=== PATIENT | male | born 1950 | race Caucasian/White ===

== ENCOUNTER 2017-01-12 20:13 | Inpatient (IN) | payer MEDICARE, OTHER ==
[~2017-01-12] VITALS: Ht 172.7 cm; Wt 78.9 kg
[2017-01-12] MEDS ORDERED: LANTUS SOL100 UNIT/1 SUBQ (20:15)
[2017-01-12 20:19] VITALS: BP 164/84
[2017-01-12 21:19] LABS: BASOPHILS % (AUTO) 0.5 % (0.0-2.0); EOSINOPHILS % (AUTO) 0.3 % (0.0-3.0); LYMPHOCYTES % (AUTO) 13.9 % (20.0-45.0); MEAN CORPUSCULAR HEMOGLOBIN 32.9 PG (27.0-31.0); MEAN CORPUSCULAR HGB CONC 35.8 G/DL (32.0-36.0); MEAN CORPUSCULAR VOLUME 92 FL (80-99); MEAN PLATELET VOLUME 9.4 FL (6.5-10.1); MONOCYTES % (AUTO) 3.3 % (1.0-10.0); PLATELET COUNT 156 K/UL (150-450); RED BLOOD COUNT 4.22 M/UL (4.70-6.10); RED CELL DISTRIBUTION WIDTH 12.9 % (11.6-14.8); WHITE BLOOD COUNT 16.6 K/UL (4.8-10.8)
[2017-01-12 21:28] LABS: ALANINE AMINOTRANSFERASE 15 U/L (3-41); ALBUMIN/GLOBULIN RATIO 1.4 (1.0-2.7); ANION GAP 16 (5-15); ASPARTATE AMINO TRANSFERASE 18 U/L (5-40); CALCIUM 9.1 mg/dL (8.6-10.2); CARBON DIOXIDE 23 mEQ/L (20-30); CHLORIDE 98 mEQ/L (98-107); CREATININE 0.6 mg/dL (0.7-1.2); GLOMERULAR FILTRATION RATE > 60 mL/min (>60); HEMOLYSIS 5; POTASSIUM 3.7 mEQ/L (3.4-4.9); SODIUM 137 mEQ/L (135-145); TOTAL PROTEIN 6.6 g/dL (6.6-8.7)
[2017-01-12 21:29] LABS: TROPONIN I < 0.30 ng/mL (<=0.30)
[2017-01-12 21:52] LABS: APPEARANCE,URINE CLEAR; KETONES,URINE 2+ (NEGATIVE); LEUKOCYTE ESTERASE ,URINE NEGATIVE (NEGATIVE); NITRITE,URINE NEGATIVE (NEGATIVE); PH,URINE 5 (4.5-8.0); PROTEIN,URINE 1+ (NEGATIVE); UROBILINOGEN,URINE NORMAL MG/DL (0.0-1.0)
[2017-01-12 21:58] LABS: BACTERIA,URINE FEW /HPF; WBC,URINE 0-2 /HPF (0 - 0)
--- NOTE | 2017-01-12 22:12 | Emergency Room Report ---
History of Present Illness General Chief Complaint: Altered Level of Consciousness Source: Patient, EMS Present Illness HPI The patient presents with altered mental status. 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 They were giving him D10. His blood sugar in the field was 34. He 's had hypoglycemic episodes in the past. The last time was 3 weeks ago. He usually feels them coming on with tingling in his fingers. He felt nothing (no warning) prior to this episode. The patient does drive. He denies any fevers, chest pain, nausea, vomiting, diarrhea, dysuria. He states this was around the time he was supposed to eat something. The patient takes Lantus 20 and took 16 of Humalog earlier today. He says his Accu-Chek was "normal" he doesn't give a number. Usually also takes 20 to of Lantus at night and 20 of Humalog. He last saw his primary physician a month ago. Allergies: Coded Allergies: No Known Allergies (Unverified , 01/12/17) Patient History Past Medical History: see triage record, DM Social History: Reports: smoking Social History Narrative Reviewed Nursing Documentation: PMH: Agreed, PSxH: Agreed Nursing Documentation-PMH Past Medical History: No History, Except For Hx Cardiac Problems: Yes Hx Diabetes: Yes Review of Systems All Other Systems: negative except mentioned in HPI Physical Exam Vital Signs Date Time Temp Pulse Resp B/P Pulse Ox O2 Delivery O2 Flow Rate FiO2 01/12/17 20:12 96 16 164/84 99 Room Air 01/12/17 20:19 98.3 Sp02 EP Interpretation: reviewed, normal General Appearance: well appearing, no apparent distress, GCS 15 Head: normocephalic Eyes: bilateral eye PERRL, bilateral eye normal inspection ENT: moist mucus membranes Neck: supple Respiratory: lungs clear, normal breath sounds Cardiovascular #1: regular rate, rhythm Cardiovascular #2: 2+ radial (R) Gastrointestinal: normal inspection, normal bowel sounds, non tender, no mass, non-distended Musculoskeletal: back normal, gait/station normal, normal range of motion Neurologic: alert, oriented x3, grossly normal Psychiatric: mood/affect normal - denial of problems Skin: normal inspection, warm/dry Medical Decision Making Diagnostic Impression: Primary Impression: Hypoglycemia Additional Impressions: Bigeminy Leukocytosis Qualified Codes: D72.829 - Elevated white blood cell count, unspecified ER Course The patient presents with hypoglycemia and altered level of consciousness. Differential includes factors that would make his blood sugar go down including acute myocardial infarction, occult infection, excess insulin, not eating enough , renal insufficiency amongst others. Emergent evaluation is undertaken EKG, labs, chest x-ray. Patient will be given subcutaneous DET early monitoring his blood sugars. Labs are significant for elevated white count. A chest x-ray is unremarkable. EKG shows no acute injury but has bigemini (frequent ectopy). Renal function is normal. Because of the leukocytosis and the patient needs to be observed. Admit to the hospital. Dr. Steiner. Blood sugars have remained stable since the episode. Also DMV form was filled out. Laboratory Tests Test 01/12/17 21:10 White Blood Count 16.6 K/UL (4.8-10.8) H Red Blood Count 4.22 M/UL (4.70-6.10) L Hemoglobin 13.9 G/DL (14.2-18.0) L Hematocrit 38.8 % (42.0-52.0) L Mean Corpuscular Volume 92 FL (80-99) Mean Corpuscular Hemoglobin 32.9 PG (27.0-31.0) H Mean Corpuscular Hemoglobin Concent 35.8 G/DL (32.0-36.0) Red Cell Distribution Width 12.9 % (11.6-14.8) Platelet Count 156 K/UL (150-450) Mean Platelet Volume 9.4 FL (6.5-10.1) Neutrophils (%) (Auto) 82.0 % (45.0-75.0) H Lymphocytes (%) (Auto) 13.9 % (20.0-45.0) L Monocytes (%) (Auto) 3.3 % (1.0-10.0) Eosinophils (%) (Auto) 0.3 % (0.0-3.0) Basophils (%) (Auto) 0.5 % (0.0-2.0) Urine Color Pale yellow Urine Appearance Clear Urine pH 5 (4.5-8.0) Urine Specific [place] 1.020 (1.005-1.035) Urine Protein 1+ (NEGATIVE) H Urine Glucose (UA) 3+ (NEGATIVE) H Urine Ketones 2+ (NEGATIVE) H Urine Occult Blood 2+ (NEGATIVE) H Urine Nitrite Negative (NEGATIVE) Urine Bilirubin Negative (NEGATIVE) Urine Urobilinogen Normal MG/DL (0.0-1.0) Urine Leukocyte Esterase Negative (NEGATIVE) Urine RBC 2-4 /HPF (0 - 0) H Urine WBC 0-2 /HPF (0 - 0) Urine Squamous Epithelial Cells None /LPF (NONE/OCC) Urine Bacteria Few /HPF (NONE) Sodium Level 137 mEQ/L (135-145) Potassium Level 3.7 mEQ/L (3.4-4.9) Chloride Level 98 mEQ/L (98-107) Carbon Dioxide Level 23 mEQ/L (20-30) Anion Gap 16 (5-15) H Blood Urea Nitrogen 13 mg/dL (7-23) Creatinine 0.6 mg/dL (0.7-1.2) L Estimate Glomerular Filtration Rate > 60 mL/min (>60) Glucose Level 252 mg/dL (74-106) H Calcium Level 9.1 mg/dL (8.6-10.2) Total Bilirubin 0.4 mg/dL (0.0-1.2) Aspartate Amino Transferase (AST) 18 U/L (5-40) Alanine Aminotransferase (ALT) 15 U/L (3-41) Alkaline Phosphatase 87 U/L (40-129) Total Creatine Kinase 190 U/L (38-174) H Troponin I < 0.30 ng/mL (<=0.30) Pro-B-Type Natriuretic Peptide 311 pg/mL (0-125) H Total Protein 6.6 g/dL (6.6-8.7) Albumin 3.9 g/dL (3.5-5.2) Globulin 2.7 g/dL Albumin/Globulin Ratio 1.4 (1.0-2.7) Urine Opiates Screen Negative (NEGATIVE) Urine Barbiturates Screen Negative (NEGATIVE) Phencyclidine (PCP) Screen Negative (NEGATIVE) Urine Amphetamines Screen Negative (NEGATIVE) Urine Benzodiazepines Screen Negative (NEGATIVE) Urine Cocaine Screen Negative (NEGATIVE) Urine Marijuana (THC) Screen Negative (NEGATIVE) EKG Diagnostic Results Rate: normal Rhythm: NSR ST Segments: other - frequent PVCs Rhythm Strip Diag. Results EP Interpretation: yes Rhythm: NSR, no PVC's, no ectopy Chest X-Ray Diagnostic Results EP Interpretation: Yes Findings: no consolidation, no effusion, no pneumothorax, no acute cardiopulmonary disease Number of Views: 1 Last Vital Signs Date Time Temp Pulse Resp B/P Pulse Ox O2 Delivery O2 Flow Rate FiO2 01/13/17 00:00 98.0 86 20 145/80 99 Room Air Status: improved Disposition: ADMITTED INPATIENT Condition: Serious Referrals: NOT CHOSEN IPA/,REFERRING (PCP) Karan Vyas M.D. January 12, 2017 22:12
[2017-01-12 22:15] VITALS: BP 153/75
[2017-01-12] MEDS ORDERED: Nitroglycerin Subl 0.4mg tab (Bottle Of 25) SL PRN (23:30)
[2017-01-12] MEDS ORDERED: DuoNeb 0.5-3(2.5)mg/3ml neb HHN PRN (23:30)
[2017-01-12] MEDS ORDERED: Miralax 17gm pkt ORAL PRN (23:30)
[2017-01-12] MEDS ORDERED: Morphine Sulfate 2mg/ml Inj IVP PRN (23:30)
[2017-01-13] VITALS: BP 145/80
[2017-01-13] MEDS ORDERED: Vancomycin 1 GM in D5W 275 ML IV SCH (00:30)
[2017-01-13] MEDS ORDERED: Vancomycin 1.5 GM in D5W 325 ML IVPB SCH (01:00)
[2017-01-13 04:00] VITALS: BP 107/63
[2017-01-13] MEDS: NovoLOG Insulin Flexpen SUBQ SCH ×4 (06:21→21:23)
[2017-01-13 07:25] LABS: BASOPHILS % (AUTO) 1.2 % (0.0-2.0); EOSINOPHILS % (AUTO) 2.3 % (0.0-3.0); LYMPHOCYTES % (AUTO) 42.2 % (20.0-45.0); MEAN CORPUSCULAR HEMOGLOBIN 30.5 PG (27.0-31.0); MEAN CORPUSCULAR HGB CONC 33.4 G/DL (32.0-36.0); MEAN CORPUSCULAR VOLUME 91 FL (80-99); MEAN PLATELET VOLUME 9.4 FL (6.5-10.1); MONOCYTES % (AUTO) 5.9 % (1.0-10.0); NEUTROPHILS % (AUTO) 48.5 % (45.0-75.0); PLATELET COUNT 197 K/UL (150-450); RED BLOOD COUNT 4.47 M/UL (4.70-6.10); RED CELL DISTRIBUTION WIDTH 13.2 % (11.6-14.8); WHITE BLOOD COUNT 10.1 K/UL (4.8-10.8)
[2017-01-13 07:32] LABS: ALANINE AMINOTRANSFERASE 13 U/L (3-41); ALBUMIN/GLOBULIN RATIO 1.2 (1.0-2.7); ANION GAP 13 (5-15); ASPARTATE AMINO TRANSFERASE 16 U/L (5-40); CALCIUM 9.3 mg/dL (8.6-10.2); CARBON DIOXIDE 27 mEQ/L (20-30); CHLORIDE 101 mEQ/L (98-107); CHOLESTEROL 157 mg/dL (< 200); CREATININE 0.7 mg/dL (0.7-1.2); GLOMERULAR FILTRATION RATE > 60 mL/min (>60); HEMOLYSIS 7; POTASSIUM 3.9 mEQ/L (3.4-4.9); SODIUM 141 mEQ/L (135-145); TOTAL PROTEIN 6.2 g/dL (6.6-8.7)
[2017-01-13 07:43] LABS: MAGNESIUM 1.9 mg/dL (1.7-2.5)
[2017-01-13 07:46] LABS: TROPONIN I < 0.30 ng/mL (<=0.30)
[2017-01-13 08:04] VITALS: BP 119/70
[2017-01-13] MEDS: Heparin 5000 units/ml inj SUBQ SCH ×2 (08:33→21:24)
[2017-01-13] MEDS ORDERED: Cefepime HCl 2 GM in D5W 110 ML IV SCH (09:00)
--- NOTE | 2017-01-13 09:11 | Cardiology Progress Note ---
Assessment/Plan Assessment/Plan The patient is seen and examined, full consult note is dictated. Objective Last 24 Hour Vital Signs Date Time Temp Pulse Resp B/P Pulse Ox O2 Delivery O2 Flow Rate FiO2 01/13/17 08:31 119/70 01/13/17 08:04 97.0 82 18 119/70 96 Room Air 01/13/17 04:00 71 01/13/17 04:00 97.7 77 20 107/63 95 Room Air 01/13/17 00:00 98.0 86 20 145/80 99 Room Air 01/13/17 00:00 89 01/12/17 23:06 98.3 81 30 153/75 99 Room Air 01/12/17 22:15 98.3 81 30 153/75 99 Room Air 01/12/17 20:19 98.3 89 16 164/84 99 Room Air 01/12/17 20:12 96 16 164/84 99 Room Air Intake and Output 01/12/17 01/13/17 19:00 07:00 # Voids 3 Laboratory Tests Test 01/12/17 21:10 01/13/17 06:00 White Blood Count 16.6 K/UL (4.8-10.8) H 10.1 K/UL (4.8-10.8) Red Blood Count 4.22 M/UL (4.70-6.10) L 4.47 M/UL (4.70-6.10) L Hemoglobin 13.9 G/DL (14.2-18.0) L 13.7 G/DL (14.2-18.0) L Hematocrit 38.8 % (42.0-52.0) L 40.9 % (42.0-52.0) L Mean Corpuscular Volume 92 FL (80-99) 91 FL (80-99) Mean Corpuscular Hemoglobin 32.9 PG (27.0-31.0) H 30.5 PG (27.0-31.0) Mean Corpuscular Hemoglobin Concent 35.8 G/DL (32.0-36.0) 33.4 G/DL (32.0-36.0) Red Cell Distribution Width 12.9 % (11.6-14.8) 13.2 % (11.6-14.8) Platelet Count 156 K/UL (150-450) 197 K/UL (150-450) Mean Platelet Volume 9.4 FL (6.5-10.1) 9.4 FL (6.5-10.1) Neutrophils (%) (Auto) 82.0 % (45.0-75.0) H 48.5 % (45.0-75.0) Lymphocytes (%) (Auto) 13.9 % (20.0-45.0) L 42.2 % (20.0-45.0) Monocytes (%) (Auto) 3.3 % (1.0-10.0) 5.9 % (1.0-10.0) Eosinophils (%) (Auto) 0.3 % (0.0-3.0) 2.3 % (0.0-3.0) Basophils (%) (Auto) 0.5 % (0.0-2.0) 1.2 % (0.0-2.0) Urine Color Pale yellow Urine Appearance Clear Urine pH 5 (4.5-8.0) Urine Specific [place] 1.020 (1.005-1.035) Urine Protein 1+ (NEGATIVE) H Urine Glucose (UA) 3+ (NEGATIVE) H Urine Ketones 2+ (NEGATIVE) H Urine Occult Blood 2+ (NEGATIVE) H Urine Nitrite Negative (NEGATIVE) Urine Bilirubin Negative (NEGATIVE) Urine Urobilinogen Normal MG/DL (0.0-1.0) Urine Leukocyte Esterase Negative (NEGATIVE) Urine RBC 2-4 /HPF (0 - 0) H Urine WBC 0-2 /HPF (0 - 0) Urine Squamous Epithelial Cells None /LPF (NONE/OCC) Urine Bacteria Few /HPF (NONE) Sodium Level 137 mEQ/L (135-145) 141 mEQ/L (135-145) Potassium Level 3.7 mEQ/L (3.4-4.9) 3.9 mEQ/L (3.4-4.9) Chloride Level 98 mEQ/L (98-107) 101 mEQ/L (98-107) Carbon Dioxide Level 23 mEQ/L (20-30) 27 mEQ/L (20-30) Anion Gap 16 (5-15) H 13 (5-15) Blood Urea Nitrogen 13 mg/dL (7-23) 13 mg/dL (7-23) Creatinine 0.6 mg/dL (0.7-1.2) L 0.7 mg/dL (0.7-1.2) Estimat Glomerular Filtration Rate > 60 mL/min (>60) > 60 mL/min (>60) Glucose Level 252 mg/dL (74-106) H 111 mg/dL (74-106) #H Calcium Level 9.1 mg/dL (8.6-10.2) 9.3 mg/dL (8.6-10.2) Total Bilirubin 0.4 mg/dL (0.0-1.2) 0.5 mg/dL (0.0-1.2) Aspartate Amino Transf (AST/SGOT) 18 U/L (5-40) 16 U/L (5-40) Alanine Aminotransferase (ALT/SGPT) 15 U/L (3-41) 13 U/L (3-41) Alkaline Phosphatase 87 U/L (40-129) 86 U/L (40-129) Total Creatine Kinase 190 U/L (38-174) H Troponin I < 0.30 ng/mL (<=0.30) < 0.30 ng/mL (<=0.30) Pro-B-Type Natriuretic Peptide 311 pg/mL (0-125) H Total Protein 6.6 g/dL (6.6-8.7) 6.2 g/dL (6.6-8.7) L Albumin 3.9 g/dL (3.5-5.2) 3.5 g/dL (3.5-5.2) Globulin 2.7 g/dL 2.7 g/dL Albumin/Globulin Ratio 1.4 (1.0-2.7) 1.2 (1.0-2.7) Urine Opiates Screen Negative (NEGATIVE) Urine Barbiturates Screen Negative (NEGATIVE) Phencyclidine (PCP) Screen Negative (NEGATIVE) Urine Amphetamines Screen Negative (NEGATIVE) Urine Benzodiazepines Screen Negative (NEGATIVE) Urine Cocaine Screen Negative (NEGATIVE) Urine Marijuana (THC) Screen Negative (NEGATIVE) Phosphorus Level 3.0 mg/dL (2.5-4.8) Magnesium Level 1.9 mg/dL (1.7-2.5) Cholesterol Level 157 mg/dL (< 200) SERVANDO LEVINE January 13, 2017 09:11
[2017-01-13] MEDS: Bystolic 2.5mg Tab ORAL SCH (10:42)
[2017-01-13 11:41] VITALS: BP 131/82
--- NOTE | 2017-01-13 12:14 | Consultation ---
Consult Note Consult Note ID Dic# [id number] DAREN SALAS M.D. January 13, 2017 12:13
--- NOTE | 2017-01-13 12:45 | Diagnostic Imaging Report ---
Indication: Chest pain Technique: One view of the chest Comparison: none Findings: Lungs and pleural spaces are clear. Heart size is normal. There are degenerative spondylosis changes Impression: No acute process
[2017-01-13] MEDS ORDERED: Tubing IV Secondary IV ONE (13:53)
[2017-01-13] MEDS ORDERED: NS 275ml ONE (13:53)
--- NOTE | 2017-01-13 14:45 | Consultation ---
History of Present Illness General Date patient seen: January 13, 2017 Chief Complaint: Altered Level of Consciousness Referring physician: Dr. Gann Reason for Consultation: inpaitent management Present Illness HPI 66 year old male with hx of DM, CAD, s/p stent many years ago at [facility] presented with altered mental status. 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 They were giving him D10. His blood sugar in the field was 34. He's had hypoglycemic episodes in the past. The last time was 3 weeks ago. He is admitted to telemetry acute encephalopathy and increased WBC as well. Allergies: Coded Allergies: No Known Allergies (Unverified , 01/12/17) Medication History Scheduled Insulin Glargine (Lantus), 0 SUBQ BEDTIME, (Reported) Patient History Healthcare decision maker pt A&Ox4 Resuscitation status Full Code Advanced Directive on File Past Medical/Surgical History Past Medical/Surgical History: (1) CAD (coronary artery disease) (2) Diabetes mellitus Review of Systems All Other Systems: negative except mentioned in HPI Physical Exam General Appearance: WD/WN Lines, tubes and drains: peripheral, central line HEENT: normocephalic Neck: non-tender, normal alignment Respiratory/Chest: chest wall non-tender, lungs clear Breasts: no masses Cardiovascular/Chest: normal peripheral pulses Abdomen: normal bowel sounds, non tender Genitourinary/Rectal: normal genital exam, normal rectal exam Extremities: normal range of motion, non-tender Neurologic: scale and skip car operator II-XII grossly normal Last 24 Hour Vital Signs Date Time Temp Pulse Resp B/P Pulse Ox O2 Delivery O2 Flow Rate FiO2 01/13/17 12:00 89 01/13/17 11:41 97.3 76 18 131/82 95 Room Air 01/13/17 08:31 119/70 01/13/17 08:04 97.0 82 18 119/70 96 Room Air 01/13/17 08:00 69 01/13/17 07:30 82 18 Room Air 21 01/13/17 04:00 71 01/13/17 04:00 97.7 77 20 107/63 95 Room Air 01/13/17 00:00 98.0 86 20 145/80 99 Room Air 01/13/17 00:00 89 01/12/17 23:06 98.3 81 30 153/75 99 Room Air 01/12/17 22:15 98.3 81 30 153/75 99 Room Air 01/12/17 20:19 98.3 89 16 164/84 99 Room Air 01/12/17 20:12 96 16 164/84 99 Room Air Intake and Output 01/12/17 01/13/17 19:00 07:00 # Voids 3 Laboratory Tests Test 01/12/17 21:10 01/13/17 06:00 White Blood Count 16.6 K/UL (4.8-10.8) H 10.1 K/UL (4.8-10.8) Red Blood Count 4.22 M/UL (4.70-6.10) L 4.47 M/UL (4.70-6.10) L Hemoglobin 13.9 G/DL (14.2-18.0) L 13.7 G/DL (14.2-18.0) L Hematocrit 38.8 % (42.0-52.0) L 40.9 % (42.0-52.0) L Mean Corpuscular Volume 92 FL (80-99) 91 FL (80-99) Mean Corpuscular Hemoglobin 32.9 PG (27.0-31.0) H 30.5 PG (27.0-31.0) Mean Corpuscular Hemoglobin Concent 35.8 G/DL (32.0-36.0) 33.4 G/DL (32.0-36.0) Red Cell Distribution Width 12.9 % (11.6-14.8) 13.2 % (11.6-14.8) Platelet Count 156 K/UL (150-450) 197 K/UL (150-450) Mean Platelet Volume 9.4 FL (6.5-10.1) 9.4 FL (6.5-10.1) Neutrophils (%) (Auto) 82.0 % (45.0-75.0) H 48.5 % (45.0-75.0) Lymphocytes (%) (Auto) 13.9 % (20.0-45.0) L 42.2 % (20.0-45.0) Monocytes (%) (Auto) 3.3 % (1.0-10.0) 5.9 % (1.0-10.0) Eosinophils (%) (Auto) 0.3 % (0.0-3.0) 2.3 % (0.0-3.0) Basophils (%) (Auto) 0.5 % (0.0-2.0) 1.2 % (0.0-2.0) Urine Color Pale yellow Urine Appearance Clear Urine pH 5 (4.5-8.0) Urine Specific [place] 1.020 (1.005-1.035) Urine Protein 1+ (NEGATIVE) H Urine Glucose (UA) 3+ (NEGATIVE) H Urine Ketones 2+ (NEGATIVE) H Urine Occult Blood 2+ (NEGATIVE) H Urine Nitrite Negative (NEGATIVE) Urine Bilirubin Negative (NEGATIVE) Urine Urobilinogen Normal MG/DL (0.0-1.0) Urine Leukocyte Esterase Negative (NEGATIVE) Urine RBC 2-4 /HPF (0 - 0) H Urine WBC 0-2 /HPF (0 - 0) Urine Squamous Epithelial Cells None /LPF (NONE/OCC) Urine Bacteria Few /HPF (NONE) Sodium Level 137 mEQ/L (135-145) 141 mEQ/L (135-145) Potassium Level 3.7 mEQ/L (3.4-4.9) 3.9 mEQ/L (3.4-4.9) Chloride Level 98 mEQ/L (98-107) 101 mEQ/L (98-107) Carbon Dioxide Level 23 mEQ/L (20-30) 27 mEQ/L (20-30) Anion Gap 16 (5-15) H 13 (5-15) Blood Urea Nitrogen 13 mg/dL (7-23) 13 mg/dL (7-23) Creatinine 0.6 mg/dL (0.7-1.2) L 0.7 mg/dL (0.7-1.2) Estimat Glomerular Filtration Rate > 60 mL/min (>60) > 60 mL/min (>60) Glucose Level 252 mg/dL (74-106) H 111 mg/dL (74-106) #H Calcium Level 9.1 mg/dL (8.6-10.2) 9.3 mg/dL (8.6-10.2) Total Bilirubin 0.4 mg/dL (0.0-1.2) 0.5 mg/dL (0.0-1.2) Aspartate Amino Transf (AST/SGOT) 18 U/L (5-40) 16 U/L (5-40) Alanine Aminotransferase (ALT/SGPT) 15 U/L (3-41) 13 U/L (3-41) Alkaline Phosphatase 87 U/L (40-129) 86 U/L (40-129) Total Creatine Kinase 190 U/L (38-174) H Troponin I < 0.30 ng/mL (<=0.30) < 0.30 ng/mL (<=0.30) Pro-B-Type Natriuretic Peptide 311 pg/mL (0-125) H Total Protein 6.6 g/dL (6.6-8.7) 6.2 g/dL (6.6-8.7) L Albumin 3.9 g/dL (3.5-5.2) 3.5 g/dL (3.5-5.2) Globulin 2.7 g/dL 2.7 g/dL Albumin/Globulin Ratio 1.4 (1.0-2.7) 1.2 (1.0-2.7) Urine Opiates Screen Negative (NEGATIVE) Urine Barbiturates Screen Negative (NEGATIVE) Phencyclidine (PCP) Screen Negative (NEGATIVE) Urine Amphetamines Screen Negative (NEGATIVE) Urine Benzodiazepines Screen Negative (NEGATIVE) Urine Cocaine Screen Negative (NEGATIVE) Urine Marijuana (THC) Screen Negative (NEGATIVE) Phosphorus Level 3.0 mg/dL (2.5-4.8) Magnesium Level 1.9 mg/dL (1.7-2.5) Cholesterol Level 157 mg/dL (< 200) Height (Feet): 5 Height (Inches): 8.00 Weight (Pounds): 174 Medications Current Medications Medications (Trade) Dose Ordered Sig/Gilbert Route PRN Reason Start Time Stop Time Status Last Admin Dose Admin Acetaminophen (Tylenol) 650 mg Q4H PRN ORAL fever 01/12/17 23:30 02/11/17 23:29 Albuterol/ Ipratropium (DuoNeb 0.5-3(2.5)mg/3ml) 3 ml EVERY 4 HOURS PRN HHN Shortness of Breath 01/12/17 23:30 01/17/17 23:29 Clonidine HCl (Catapres) 0.1 mg Q6H PRN ORAL sbp>160 01/12/17 23:45 02/11/17 23:44 Dextrose (Dextrose 50%) STAT PRN IV Hypoglycemia 01/12/17 23:30 02/11/17 23:29 Heparin Sodium (Porcine) (Heparin 5000 units/ml) 5,000 units EVERY 12 HOURS SUBQ 01/13/17 09:00 02/12/17 08:59 01/13/17 08:33 Insulin Aspart (NovoLOG) BEFORE MEALS AND HS SUBQ 01/13/17 06:30 02/12/17 06:29 01/13/17 11:09 Irbesartan (Avapro) 75 mg DAILY ORAL 01/13/17 09:00 02/12/17 08:59 01/13/17 08:31 Morphine Sulfate (Morphine Sulfate) 2 mg EVERY 4 HOURS PRN IVP Moderate Pain (Pain Scale 4-6) 01/12/17 23:30 01/19/17 23:29 Nebivolol (Bystolic) 5 mg DAILY ORAL 01/13/17 10:00 02/12/17 09:59 01/13/17 10:42 Nitroglycerin (Ntg) 0.4 mg Every 5 Minutes PRN SL Prn Chest Pain 01/12/17 23:30 02/11/17 23:29 Ondansetron HCl (Zofran) 4 mg Q6H PRN IVP Nausea & Vomiting 01/12/17 23:30 02/11/17 23:29 Polyethylene Glycol (Miralax) 17 gm DAILYPRN PRN ORAL Constipation 01/12/17 23:30 02/11/17 23:29 Temazepam (Restoril) 15 mg HSPRN PRN ORAL Insomnia 01/12/17 23:30 01/19/17 23:29 Assessment/Plan Problem List: (1) Acute encephalopathy ICD Codes: G93.40 - Encephalopathy, unspecified SNOMED: 0573573 (2) Hypoglycemia ICD Codes: E16.2 - Hypoglycemia, unspecified SNOMED: 792709895 (3) Leukocytosis ICD Codes: D72.829 - Elevated white blood cell count, unspecified SNOMED: 912775720, 776989630 Qualifiers: Qualified Codes: D72.829 - Elevated white blood cell count, unspecified (4) Diabetes mellitus ICD Codes: E11.9 - Type 2 diabetes mellitus without complications SNOMED: 80817053 (5) CAD (coronary artery disease) ICD Codes: I25.10 - Atherosclerotic heart disease of [place] coronary artery without angina pectoris SNOMED: 48088235 Assessment/Plan d5 1/2 Ns sliding scale f/u wbc cardiac evaluation VIN RIZVI January 13, 2017 14:45
[2017-01-13 15:28] VITALS: BP 116/48
[2017-01-13] MEDS ORDERED: NovoLOG Insulin Flexpen SUBQ SCH (16:30)
--- NOTE | 2017-01-13 17:49 | History & Physical ---
History and Physical History & Physicial [place] Steiner MD January 13, 2017 17:49
[2017-01-13 20:28] VITALS: BP 123/60
--- NOTE | 2017-01-13 20:32 | Consultation ---
DATE OF CONSULTATION: INFECTIOUS DISEASE CONSULTATION CONSULTING PHYSICIAN: Gene Moyer M.D. REFERRING PHYSICIAN: Keith Acevedo M.D. REASON FOR CONSULTATION: Leukocytosis and possible sepsis. HISTORY OF PRESENT ILLNESS: The patient is a 66-year-old male with multiple medical problems, as listed below, who was admitted to this medical center because of altered level of consciousness. The patient was found to be hypoglycemic with glucose of 34. At the time of admission, the patient was found to have leukocytosis of 16,000 that has normalized today. The patient has been started on IV antibiotics. Infectious Disease consultation has been requested for further evaluation of the patient. The patient, at the time of my visit, mental status has improved back to normal. The patient has history of occasional cough due to smoking. However, he did not have any fever, chills, abdominal pain, nausea, vomiting, diarrhea, dysuria, or polyuria prior to admission or currently. MEDICATIONS: Cefepime and vancomycin. ALLERGIES: No known drug allergies. FAMILY HISTORY: Noncontributory. REVIEW OF SYSTEMS: At 10-point review was done and except what is mentioned has been negative. PHYSICAL EXAMINATION: VITAL SIGNS: Temperature 97.3 degrees, blood pressure 151/82, pulse 76, and respiratory rate 18. HEENT: Mild pale conjunctivae. No icterus. NECK: No lymphadenopathy. CHEST: Clear. HEART: S1 and S2. ABDOMEN: Soft and nontender. EXTREMITIES: No cyanosis. NEUROLOGIC: Awake and alert. LABORATORY DATA: White blood cells 10, hemoglobin 13, and platelets 194,000. White blood cell count at the time of admission was 16.6. BUN 13 and creatinine 0.7. ALT, AST, and alkaline phosphatase are normal. 119. ASSESSMENT: The patient is a 66-year-old male with history of diabetes, who was admitted to this medical center for hypoglycemia. The patient is using insulin and white blood cells appeared to be stress induced. Based on exam and history, there is no evidence of an infection. PLAN: 1. I will discontinue antibiotic treatment and we will monitor the patient off of antibiotics. 2. Monitor CBC. 3. Monitor BMP. 4. From an infectious point, the patient may get discharged off of antibiotics. Thank you, Dr. Acevedo, for allowing me to participate in the care of this patient. I will follow the patient with you during this hospitalization. Gene Moyer M.D. DR: DAYRON JOB#: [id number] CC:
[2017-01-14 00:29] VITALS: BP 125/66
--- NOTE | 2017-01-14 03:02 | History and Physical Report ---
DATE OF ADMISSION: 01/12/2017 CHIEF COMPLAINT: Altered mental status. HISTORY OF PRESENT ILLNESS: This is a 66-year-old, gentleman with past medical history significant for coronary artery disease, status post stent placement and diabetes type 2 who was presented to the hospital after was noted to be altered mental status. The patient stated that he woke up and noted that the . They have given him D10 and it was noted that the blood glucose level was 34 on the field. The patient had an episode of hyperglycemia in the past and for the last past 3 weeks has become progressively worsening. The patient is admitted. Subsequently after initial evaluation in the emergency, the patient was admitted to the hospital with acute and toxic metabolic encephalopathy due to the hypoglycemia and leukocytosis. PAST MEDICAL HISTORY/PAST SURGICAL HISTORY: As above. History of coronary artery disease, status post PTCA with stent at [facility] and history of diabetes type 2. MEDICATIONS AT HOME: Very limited. The patient stated that he is on 2 types of insulin, Lantus as well as short-acting insulin, but he is not very clear about his medications. ALLERGIES: No known drug allergies. SOCIAL HISTORY: The patient currently smokes 2 to 3 cigarettes a day. Denies any substance abuse. Denies any alcohol abuse. FAMILY HISTORY: Noncontributory. REVIEW OF SYSTEMS: Mostly as above. Denies any dysuria or frequency. Denies any hematuria. Denies any hemoptysis or hematochezia. Denies any suicidal or homicidal ideation. Complained about loss of consciousness. Denies any seizure activity. Denies any history of fall with head trauma. PHYSICAL EXAMINATION: VITAL SIGNS: On admission, temperature 98.3, pulse of 96, respirations 16, and blood pressure 164/84, repeat one is 119/70. GENERAL: The patient is awake, responsive, and not in acute distress. HEAD AND NECK: Pupils are reactive to light. EOMs are intact. NECK: Supple. No JVD. LUNGS: Good air entry. No wheezing or rales. HEART: S1 and S2. Regular rhythm. No gallops. ABDOMEN: Soft, nondistended, and nontender. Positive bowel sounds. EXTREMITIES: No cyanosis, clubbing, or edema. NEUROLOGIC: Cranial nerves II through XII are grossly intact. Motor is 5/5 in all extremities. Gait is intact. PSYCHIATRIC: Mood and affect is intact. LABORATORY ON ADMISSION: WBC of 16.6, hemoglobin 13, hematocrit 38, and platelets 156,000. Sodium 137, potassium 2.7, chloride 98, bicarbonate 23, BUN 13, creatinine 0.6, and glucose level is 252, repeat was 111. Total CK is 190. First troponin less than 0.30. ProBNP of 311. UA: +1 protein, glucose is +3, ketones +2, nitrite negative, leukocyte negative, and 2 to 4 RBCs. Urine drug screen is essentially unremarkable. The patient's EKG is sinus rhythm with frequent PVCs, left atrial enlargement, ventricular rate of 88, no ST elevation was noted. The patient had Q waves in leads II, III, and aVF. The patient had echocardiogram done, preliminary results is significant with normal left ventricular systolic chambers, ejection fraction of 60%, borderline left mild left ventricular hypertrophy, and mild mitral regurgitation, mild diastolic velocity suggestive of reduced left ventricular relaxation grade I, trace tricuspid regurgitation, and trace pulmonic regurgitation. ASSESSMENT: 1. Acute toxic metabolic encephalopathy, most likely secondary to hypoglycemia. 2. Leukocytosis, most likely due to the reactive leukocytosis. 3. Uncontrolled diabetes type 2. 4. Coronary artery disease, status post percutaneous transluminal coronary angioplasty with stent placement. 5. Atherosclerotic heart disease. 6. Abnormal EKG with a bigeminy as well as inferior infarction, old one. PLAN: Admit the patient to telemetry. We will follow up laboratory. Cardiology consultation with Dr. Sanderson. ID consultation with Dr. Moyer, and pulmonary consultation with Dr. Acevedo. We will follow up with the laboratory. Gentle hydration. Monitor the blood glucose closely as well as vital signs. Code status is Full Code. DVT prophylaxis, heparin subcutaneous and we tried to get a list of home medications in order to monitor the blood glucose level closely at home. Lake Steiner M.D. DR: NEGAR JOB#: [id number] CC:
--- NOTE | 2017-01-14 04:01 | Consultation ---
DATE OF CONSULTATION: 01/13/2017 CARDIOLOGY CONSULTATION CONSULTING PHYSICIAN: Mateusz Sanderson M.D. REFERRING PHYSICIAN: Keith Acevedo M.D. ADDITIONAL REFERRING PHYSICIAN: Lake Steiner M.D. REASON FOR CONSULTATION: Management of cardiac arrhythmias. HISTORY OF PRESENT ILLNESS: The patient is a very pleasant 66-year-old gentleman, who presents to the hospital with altered mental status. Apparently, the patient had an episode of hypoglycemia with blood sugar in the field at 34. When he woke up he found himself surrounded by fire fighters. D10 was given to him and his symptoms got better. The patient had an another episode of hypoglycemia just about three weeks before this event. On en route to the hospital, he had complains of tingling of fingers. He denied any chest pain or shortness of breath. On arrival to the hospital, initial blood pressure was 164/84 and pulse was 96. A 12-lead electrocardiogram showed ventricle premature complexes in the form of bigeminy. Cardiology consultation was made at request of Dr. Acevedo for assessment and management of his condition. PAST MEDICAL HISTORY: Diabetes mellitus. PAST SURGICAL HISTORY: None. SOCIAL HISTORY: The patient smokes cigarettes. Denies any alcohol or illicit drug use. MEDICATIONS: At home including insulin glargine and Lantus. REVIEW OF SYSTEMS: HEENT: Denies any headache, diplopia, or blurred vision. Constitutional: The patient had generalized weakness, but no fever, chills, or night sweats. Cardiovascular: Denies any chest pain, shortness breath, PND, orthopnea, leg swelling, or palpitations. Pulmonary: Denies any cough, hemoptysis, or wheezing. Gastrointestinal: Denies any nausea, vomiting, diarrhea, constipation, abdominal pain, or GI bleed. Genitourinary: Denies any hematuria, dysuria, or incontinence. Neurologic: Denies any motor dysfunction, sensory deficit, or altered speech. PHYSICAL EXAMINATION: VITAL SIGNS: Blood pressure at the time of arrival to the hospital was 164/84, pulse 92, respirations 16, and O2 saturation 96% on room air. GENERAL: The patient is a very unfortunate 66-year-old gentleman, in no apparent respiratory distress. Alert and oriented x4. HEENT: Atraumatic and normocephalic. Anicteric. Pupils are equal, round, and reactive to light and accommodation. Extraocular muscles intact. NECK: JVP is less than 5 cm. No carotid bruits. Carotid upstroke is 2+ bilaterally. CARDIOVASCULAR: Normal S1 and S2. There is irregular rhythm. A 2/6 mid systolic murmur at the left sternal border. PMI is at fourth intercostal space at the midclavicular line. LUNGS: Clear to auscultation bilaterally. ABDOMEN: Soft, nontender, and nondistended. No hepatosplenomegaly. Positive bowel sounds. EXTREMITIES: No evidence of edema, clubbing, or cyanosis. LABORATORY AND DIAGNOSTIC FINDINGS: WBC 16.6, hemoglobin 13.9, hematocrit 38.8, and platelet count 156,000. Sodium 137, potassium 3.7, chloride 98, bicarbonate 23, BUN 13, creatinine 0.6, and glucose is 252. Calcium is 9.1. Troponin I x2 negative. ProBNP was 311. Urine tox screen was negative. Chest x-ray showed no acute cardiopulmonary disease. ASSESSMENT AND PLAN: The patient is a very unfortunate 66-year-old gentleman, seen in Cardiology consultation at request of Dr. Acevedo and Dr. Steiner. 1. Cardiac arrhythmia/ventricular premature complexes with bigeminy pattern. I would like to add Bystolic 5 mg daily to this regimen to control of the ectopic beats. In the meantime, we will continue with should the blood pressure drops I will place a hold on Bystolic. 2. History of hypertension stage II. We will continue with combination of Bystolic and labetalol. A 2D echocardiography has been ordered. 3. Diabetes mellitus. I would like to thank, Dr. Steiner and Dr. Acevedo, for your kind consultation. Mateusz Sanderson M.D. DR: HUMBERTO JOB#: [id number] CC:
[2017-01-14 04:14] VITALS: BP 120/78
[2017-01-14] MEDS: NovoLOG Insulin Flexpen SUBQ SCH ×6 (06:49→21:04)
[2017-01-14 08:00] VITALS: BP 119/65
--- NOTE | 2017-01-14 08:27 | General Progress Note ---
Assessment/Plan Problem List: (1) Hypoglycemia ICD Codes: E16.2 - Hypoglycemia, unspecified SNOMED: 108916854 (2) Leukocytosis ICD Codes: D72.829 - Elevated white blood cell count, unspecified SNOMED: 097148157, 415949194 Qualifiers: Qualified Codes: D72.829 - Elevated white blood cell count, unspecified (3) Diabetes mellitus ICD Codes: E11.9 - Type 2 diabetes mellitus without complications SNOMED: 52136696 (4) CAD (coronary artery disease) ICD Codes: I25.10 - Atherosclerotic heart disease of [place] coronary artery without angina pectoris SNOMED: 25186969 (5) Acute encephalopathy ICD Codes: G93.40 - Encephalopathy, unspecified SNOMED: 8556356 Assessment/Plan continue to hold basal insulin for now add Novolog 4 units ac tid to SSI Subjective Allergies: Coded Allergies: No Known Allergies (Unverified , 01/12/17) All Systems: reviewed and negative except above Subjective events noted Objective Last 24 Hour Vital Signs Date Time Temp Pulse Resp B/P Pulse Ox O2 Delivery O2 Flow Rate FiO2 01/14/17 04:14 98.5 81 20 120/78 95 Room Air 01/14/17 03:44 65 01/14/17 00:29 98.6 77 19 125/66 94 Room Air 01/13/17 23:41 78 01/13/17 20:28 98.3 78 20 123/60 95 01/13/17 19:56 93 01/13/17 19:29 80 18 Room Air 21 01/13/17 16:00 75 01/13/17 15:28 98.2 74 18 116/48 96 Room Air 01/13/17 12:00 89 01/13/17 11:41 97.3 76 18 131/82 95 Room Air 01/13/17 08:31 119/70 Intake and Output 01/13/17 01/14/17 19:00 07:00 Intake Total 820 ml Balance 820 ml Intake Oral 600 ml IV Total 220 ml # Voids 3 1 Height (Feet): 5 Height (Inches): 8.00 Weight (Pounds): 174 General Appearance: no apparent distress Neck: normal alignment Cardiovascular: normal rate Respiratory/Chest: lungs clear Abdomen: normal bowel sounds Edema: no edema noted Arm (L), no edema noted Arm (R), no edema noted Leg (L), no edema noted Leg (R), no edema noted Pedal (L), no edema noted Pedal (R), no edema noted Generalized Objective Current Medications Medications (Trade) Dose Ordered Sig/Gilbert Route PRN Reason Start Time Stop Time Status Last Admin Dose Admin Acetaminophen (Tylenol) 650 mg Q4H PRN ORAL fever 01/12/17 23:30 02/11/17 23:29 Albuterol/ Ipratropium (DuoNeb 0.5-3(2.5)mg/3ml) 3 ml EVERY 4 HOURS PRN HHN Shortness of Breath 01/12/17 23:30 01/17/17 23:29 Clonidine HCl (Catapres) 0.1 mg Q6H PRN ORAL sbp>160 01/12/17 23:45 02/11/17 23:44 Dextrose (Dextrose 50%) STAT PRN IV Hypoglycemia 01/12/17 23:30 02/11/17 23:29 Heparin Sodium (Porcine) (Heparin 5000 units/ml) 5,000 units EVERY 12 HOURS SUBQ 01/13/17 09:00 02/12/17 08:59 01/13/17 21:24 Insulin Aspart (NovoLOG) BEFORE MEALS AND HS SUBQ 01/13/17 06:30 02/12/17 06:29 01/14/17 06:49 Irbesartan (Avapro) 75 mg DAILY ORAL 01/13/17 09:00 02/12/17 08:59 01/13/17 08:31 Morphine Sulfate (Morphine Sulfate) 2 mg EVERY 4 HOURS PRN IVP Moderate Pain (Pain Scale 4-6) 01/12/17 23:30 01/19/17 23:29 Nebivolol (Bystolic) 5 mg DAILY ORAL 01/13/17 10:00 02/12/17 09:59 01/13/17 10:42 Nitroglycerin (Ntg) 0.4 mg Every 5 Minutes PRN SL Prn Chest Pain 01/12/17 23:30 02/11/17 23:29 Ondansetron HCl (Zofran) 4 mg Q6H PRN IVP Nausea & Vomiting 01/12/17 23:30 02/11/17 23:29 Polyethylene Glycol (Miralax) 17 gm DAILYPRN PRN ORAL Constipation 01/12/17 23:30 02/11/17 23:29 Temazepam (Restoril) 15 mg HSPRN PRN ORAL Insomnia 01/12/17 23:30 01/19/17 23:29 Item Value Date Time Bedside Blood Glucose 150 mg/dl H 01/14/17 0649 Bedside Blood Glucose 249 mg/dl H 01/13/17 2123 Bedside Blood Glucose 299 mg/dl H 01/13/17 1726 Bedside Blood Glucose 268 mg/dl H 01/13/17 1130 Bedside Blood Glucose 92 mg/dl 01/13/17 0621 JA PELLETIER January 14, 2017 08:27
[2017-01-14] MEDS: Bystolic 2.5mg Tab ORAL SCH (09:53)
[2017-01-14] MEDS: Heparin 5000 units/ml inj SUBQ SCH ×2 (09:56→21:05)
--- NOTE | 2017-01-14 10:26 | Pulmonology Progress Note ---
Assessment/Plan Problems: (1) Bigeminy (2) Acute encephalopathy (3) Hypoglycemia (4) Leukocytosis (5) Diabetes mellitus (6) CAD (coronary artery disease) (7) PVC (premature ventricular contraction) Assessment/Plan bystolic was added for PVC's watch blood sugar keep in telemetry, might need titration of cardiac meds dvt prophylaxis Subjective ROS Limited/Unobtainable: No Constitutional: Reports: no symptoms HEENT: Repors: no symptoms Respiratory: Reports: no symptoms Allergies: Coded Allergies: No Known Allergies (Unverified , 01/12/17) Objective Last 24 Hour Vital Signs Date Time Temp Pulse Resp B/P Pulse Ox O2 Delivery O2 Flow Rate FiO2 01/14/17 09:53 119/65 01/14/17 08:00 96.1 68 19 119/65 95 Room Air 01/14/17 04:14 98.5 81 20 120/78 95 Room Air 01/14/17 03:44 65 01/14/17 00:29 98.6 77 19 125/66 94 Room Air 01/13/17 23:41 78 01/13/17 20:28 98.3 78 20 123/60 95 01/13/17 19:56 93 01/13/17 19:29 80 18 Room Air 21 01/13/17 16:00 75 01/13/17 15:28 98.2 74 18 116/48 96 Room Air 01/13/17 12:00 89 01/13/17 11:41 97.3 76 18 131/82 95 Room Air Intake and Output 01/13/17 01/14/17 19:00 07:00 Intake Total 820 ml Balance 820 ml Intake Oral 600 ml IV Total 220 ml # Voids 3 1 General Appearance: WD/WN HEENT: normocephalic, atraumatic Respiratory/Chest: chest wall non-tender, lungs clear Cardiovascular: normal peripheral pulses, normal rate Abdomen: normal bowel sounds, soft, non tender Current Medications Medications (Trade) Dose Ordered Sig/Gilbert Route PRN Reason Start Time Stop Time Status Last Admin Dose Admin Acetaminophen (Tylenol) 650 mg Q4H PRN ORAL fever 01/12/17 23:30 02/11/17 23:29 Albuterol/ Ipratropium (DuoNeb 0.5-3(2.5)mg/3ml) 3 ml EVERY 4 HOURS PRN HHN Shortness of Breath 01/12/17 23:30 01/17/17 23:29 Clonidine HCl (Catapres) 0.1 mg Q6H PRN ORAL sbp>160 01/12/17 23:45 02/11/17 23:44 Dextrose (Dextrose 50%) STAT PRN IV Hypoglycemia 01/12/17 23:30 02/11/17 23:29 Dextrose (Dextrose 50%) STAT PRN IV Hypoglycemia 01/14/17 08:30 02/13/17 08:29 Heparin Sodium (Porcine) (Heparin 5000 units/ml) 5,000 units EVERY 12 HOURS SUBQ 01/13/17 09:00 02/12/17 08:59 01/14/17 09:56 Insulin Aspart (NovoLOG) BEFORE MEALS AND HS SUBQ 01/13/17 06:30 02/12/17 06:29 01/14/17 06:49 Insulin Aspart (NovoLOG) 4 units NOVOTIAC SUBQ 01/14/17 11:50 02/13/17 11:49 Irbesartan (Avapro) 75 mg DAILY ORAL 01/13/17 09:00 02/12/17 08:59 01/14/17 09:53 Morphine Sulfate (Morphine Sulfate) 2 mg EVERY 4 HOURS PRN IVP Moderate Pain (Pain Scale 4-6) 01/12/17 23:30 01/19/17 23:29 Nebivolol (Bystolic) 5 mg DAILY ORAL 01/13/17 10:00 02/12/17 09:59 01/14/17 09:53 Nitroglycerin (Ntg) 0.4 mg Every 5 Minutes PRN SL Prn Chest Pain 01/12/17 23:30 02/11/17 23:29 Ondansetron HCl (Zofran) 4 mg Q6H PRN IVP Nausea & Vomiting 01/12/17 23:30 02/11/17 23:29 Polyethylene Glycol (Miralax) 17 gm DAILYPRN PRN ORAL Constipation 01/12/17 23:30 02/11/17 23:29 Temazepam (Restoril) 15 mg HSPRN PRN ORAL Insomnia 01/12/17 23:30 01/19/17 23:29 VIN RIZVI January 14, 2017 10:26
[2017-01-14 12:00] VITALS: BP 120/62
--- NOTE | 2017-01-14 14:18 | Cardiology Progress Note ---
Assessment/Plan Assessment/Plan 1. VPC bigeminy, on Bystolic, now less frequent only isolated VPCs. 2. Normal LV systolic function. 3. CAD, hx of PCI, stable, continue ASA and high potency statins, i.e. atorvastatin 40, lipid panal in am Subjective Subjective Sinus rhythm at 78 with isolated VPCs. Objective Last 24 Hour Vital Signs Date Time Temp Pulse Resp B/P Pulse Ox O2 Delivery O2 Flow Rate FiO2 01/14/17 12:00 97.0 76 19 120/62 94 Room Air 01/14/17 09:53 119/65 01/14/17 08:00 96.1 68 19 119/65 95 Room Air 01/14/17 07:53 75 01/14/17 04:14 98.5 81 20 120/78 95 Room Air 01/14/17 03:44 65 01/14/17 00:29 98.6 77 19 125/66 94 Room Air 01/13/17 23:41 78 01/13/17 20:28 98.3 78 20 123/60 95 01/13/17 19:56 93 01/13/17 19:29 80 18 Room Air 21 01/13/17 16:00 75 01/13/17 15:28 98.2 74 18 116/48 96 Room Air Intake and Output 01/13/17 01/14/17 19:00 07:00 Intake Total 820 ml Balance 820 ml Intake Oral 600 ml IV Total 220 ml # Voids 3 1 2D Echo: LVEF 60%, Mild MR, Grade I LVDD, RVSP 17 mmHg Microbiology Date/Time Source Procedure Growth Status 01/13/17 06:20 Urine,Clean Catch Urine Culture - Preliminary NO GROWTH AFTER 24 HOURS Resulted Objective HEENT: Atraumatic and normocephalic. Anicteric. Pupils are equal, round, and reactive to light and accommodation. Extraocular muscles intact. NECK: JVP is less than 5 cm. No carotid bruits. Carotid upstroke is 2+ bilaterally. CARDIOVASCULAR: Normal S1 and S2. There is irregular rhythm. A 2/6 mid systolic murmur at the left sternal border. PMI is at fourth intercostal space at the midclavicular line. LUNGS: Clear to auscultation bilaterally. ABDOMEN: Soft, nontender, and nondistended. No hepatosplenomegaly. Positive bowel sounds. EXTREMITIES: No evidence of edema, clubbing, or cyanosis. SERVANDO LEVINE January 14, 2017 14:18
[2017-01-14] MEDS: Aspirin EC 81mg tab ORAL SCH (14:39)
[2017-01-14 16:00] VITALS: BP 126/60
--- NOTE | 2017-01-14 16:44 | Internal Med Progress Note ---
Subjective Date of Service: January 14, 2017 Physician Name Stan Gandara Attending Physician Lake Steiner MD Current Medications Medications (Trade) Dose Ordered Sig/Gilbert Route PRN Reason Start Time Stop Time Status Last Admin Dose Admin Acetaminophen (Tylenol) 650 mg Q4H PRN ORAL fever 01/12/17 23:30 02/11/17 23:29 Albuterol/ Ipratropium (DuoNeb 0.5-3(2.5)mg/3ml) 3 ml EVERY 4 HOURS PRN HHN Shortness of Breath 01/12/17 23:30 01/17/17 23:29 Aspirin (Ecotrin) 81 mg DAILY ORAL 01/14/17 14:30 02/13/17 14:29 01/14/17 14:39 Atorvastatin Calcium (Lipitor) 40 mg BEDTIME ORAL 01/14/17 21:00 02/13/17 20:59 Clonidine HCl (Catapres) 0.1 mg Q6H PRN ORAL sbp>160 01/12/17 23:45 02/11/17 23:44 Dextrose (Dextrose 50%) STAT PRN IV Hypoglycemia 01/12/17 23:30 02/11/17 23:29 Dextrose (Dextrose 50%) STAT PRN IV Hypoglycemia 01/14/17 08:30 02/13/17 08:29 Heparin Sodium (Porcine) (Heparin 5000 units/ml) 5,000 units EVERY 12 HOURS SUBQ 01/13/17 09:00 02/12/17 08:59 01/14/17 09:56 Insulin Aspart (NovoLOG) BEFORE MEALS AND HS SUBQ 01/13/17 06:30 02/12/17 06:29 01/14/17 12:07 Insulin Aspart (NovoLOG) 4 units NOVOTIAC SUBQ 01/14/17 11:50 02/13/17 11:49 01/14/17 12:08 Irbesartan (Avapro) 75 mg DAILY ORAL 01/13/17 09:00 02/12/17 08:59 01/14/17 09:53 Morphine Sulfate (Morphine Sulfate) 2 mg EVERY 4 HOURS PRN IVP Moderate Pain (Pain Scale 4-6) 01/12/17 23:30 01/19/17 23:29 Nebivolol (Bystolic) 5 mg DAILY ORAL 01/13/17 10:00 6/25/17 09:59 01/14/17 09:53 Nitroglycerin (Ntg) 0.4 mg Every 5 Minutes PRN SL Prn Chest Pain 01/12/17 23:30 02/11/17 23:29 Ondansetron HCl (Zofran) 4 mg Q6H PRN IVP Nausea & Vomiting 01/12/17 23:30 02/11/17 23:29 Polyethylene Glycol (Miralax) 17 gm DAILYPRN PRN ORAL Constipation 01/12/17 23:30 02/11/17 23:29 Temazepam (Restoril) 15 mg HSPRN PRN ORAL Insomnia 01/12/17 23:30 01/19/17 23:29 Allergies: Coded Allergies: No Known Allergies (Unverified , 01/12/17) ROS Limited/Unobtainable: No Constitutional: Reports: no symptoms HEENT: Reports: no symptoms Cardiovascular: Reports: no symptoms Respiratory: Reports: no symptoms Gastrointestinal/Abdominal: Reports: no symptoms Genitourinary: Reports: no symptoms Neurologic/Psychiatric: Reports: no symptoms Subjective 66 YO M admitted with hypoglycemia. Cover for [facility] Med-Dr Steiner Objective Last Vital Signs Date Time Temp Pulse Resp B/P Pulse Ox O2 Delivery O2 Flow Rate FiO2 01/14/17 16:00 97.2 69 18 126/60 92 Room Air 01/14/17 07:30 21 Microbiology Date/Time Source Procedure Growth Status 01/13/17 06:20 Urine,Clean Catch Urine Culture - Preliminary NO GROWTH AFTER 24 HOURS Resulted Intake and Output 01/13/17 01/14/17 19:00 07:00 Intake Total 820 ml Balance 820 ml Intake Oral 600 ml IV Total 220 ml # Voids 3 1 Objective General: alert, cooperative, no distress, appears stated age Head: normocephalic, without obvious abnormality, atraumatic Eyes: conjunctivae/corneas clear. PERRL, EOM's intact Throat: lips, mucosa, and tongue normal. MMM Neck: supple, symmetrical, trachea midline, and no JVD Lungs: clear to auscultation bilaterally Heart: regular rate and rhythm, S1, S2 normal, no murmur, click, rub or gallop Abdomen: soft, non-tender, non-distended, bowel sounds normal; no masses or organomegaly Extremities: extremities normal, atraumatic, no cyanosis or edema Pulses: 2+ and symmetric Skin: skin color, texture, turgor normal; no rashes or lesions Neurologic: grossly normal, no focal deficits Assessment/Plan Problem List: (1) Altered mental status Assessment & Plan: Due to hypoglycemia (2) Diabetes mellitus type II, uncontrolled Assessment & Plan: See endocrinology note. (3) Acute encephalopathy (4) Leukocytosis Assessment & Plan: D/C antibiotics. See ID note. (5) Hypoglycemia (6) CAD (coronary artery disease) Status: not improved STAN GANDARA January 14, 2017 16:44
[2017-01-14] MEDS ORDERED: ATORVASTATIN CA20 MG PO (17:24)
--- NOTE | 2017-01-14 18:39 | Infectious Diseases Prog Note ---
Assessment/Plan Assessment/Plan A: The patient is a 66-year-old male with Leukocytosis , SP 2/2 stress on evid of sepsis. SP ALOC 2/2 hypoglycemia DM PLAN: will monitor the Monitor CBC Monitor BMP Subjective Constitutional: Denies: anorexia, chills, drenching sweats, fatigue, fever, no symptoms, other Allergies: Coded Allergies: No Known Allergies (Unverified , 01/12/17) Objective Vital Signs Last 24 Hour Vital Signs Date Time Temp Pulse Resp B/P Pulse Ox O2 Delivery O2 Flow Rate FiO2 01/14/17 16:00 97.2 69 18 126/60 92 Room Air 01/14/17 15:09 65 01/14/17 12:00 97.0 76 19 120/62 94 Room Air 01/14/17 11:48 80 01/14/17 09:53 119/65 01/14/17 08:00 96.1 68 19 119/65 95 Room Air 01/14/17 07:53 75 01/14/17 07:30 70 18 Room Air 21 01/14/17 04:14 98.5 81 20 120/78 95 Room Air 01/14/17 03:44 65 01/14/17 00:29 98.6 77 19 125/66 94 Room Air 01/13/17 23:41 78 01/13/17 20:28 98.3 78 20 123/60 95 01/13/17 19:56 93 01/13/17 19:29 80 18 Room Air 21 Height (Feet): 5 Height (Inches): 8.00 Weight (Pounds): 174 HEENT: mucous membranes moist Respiratory/Chest: no accessory muscle use Cardiovascular: no JVD Abdomen: no scars Microbiology Date/Time Source Procedure Growth Status 01/13/17 06:20 Urine,Clean Catch Urine Culture - Preliminary NO GROWTH AFTER 24 HOURS Resulted Current Medications Medications (Trade) Dose Ordered Sig/Gilbert Route PRN Reason Start Time Stop Time Status Last Admin Dose Admin Acetaminophen (Tylenol) 650 mg Q4H PRN ORAL fever 01/12/17 23:30 02/11/17 23:29 Albuterol/ Ipratropium (DuoNeb 0.5-3(2.5)mg/3ml) 3 ml EVERY 4 HOURS PRN HHN Shortness of Breath 01/12/17 23:30 01/17/17 23:29 Aspirin (Ecotrin) 81 mg DAILY ORAL 01/14/17 14:30 02/13/17 14:29 01/14/17 14:39 Atorvastatin Calcium (Lipitor) 40 mg BEDTIME ORAL 01/14/17 21:00 02/13/17 20:59 Clonidine HCl (Catapres) 0.1 mg Q6H PRN ORAL sbp>160 01/12/17 23:45 02/11/17 23:44 Dextrose (Dextrose 50%) STAT PRN IV Hypoglycemia 01/12/17 23:30 02/11/17 23:29 Dextrose (Dextrose 50%) STAT PRN IV Hypoglycemia 01/14/17 08:30 02/13/17 08:29 Heparin Sodium (Porcine) (Heparin 5000 units/ml) 5,000 units EVERY 12 HOURS SUBQ 01/13/17 09:00 02/12/17 08:59 01/14/17 09:56 Insulin Aspart (NovoLOG) BEFORE MEALS AND HS SUBQ 01/13/17 06:30 02/12/17 06:29 01/14/17 16:51 Insulin Aspart (NovoLOG) 4 units NOVOTIAC SUBQ 01/14/17 11:50 02/13/17 11:49 01/14/17 16:51 Irbesartan (Avapro) 75 mg DAILY ORAL 01/13/17 09:00 02/12/17 08:59 01/14/17 09:53 Morphine Sulfate (Morphine Sulfate) 2 mg EVERY 4 HOURS PRN IVP Moderate Pain (Pain Scale 4-6) 01/12/17 23:30 01/19/17 23:29 Nebivolol (Bystolic) 5 mg DAILY ORAL 01/13/17 10:00 02/12/17 09:59 01/14/17 09:53 Nitroglycerin (Ntg) 0.4 mg Every 5 Minutes PRN SL Prn Chest Pain 01/12/17 23:30 02/11/17 23:29 Ondansetron HCl (Zofran) 4 mg Q6H PRN IVP Nausea & Vomiting 01/12/17 23:30 02/11/17 23:29 Polyethylene Glycol (Miralax) 17 gm DAILYPRN PRN ORAL Constipation 01/12/17 23:30 02/11/17 23:29 Temazepam (Restoril) 15 mg HSPRN PRN ORAL Insomnia 01/12/17 23:30 01/19/17 23:29 DAREN SALAS M.D. January 14, 2017 18:39
[2017-01-14 20:00] VITALS: BP 124/75
[2017-01-15] VITALS: BP 122/59
[2017-01-15 04:21] VITALS: BP 124/66
[2017-01-15] MEDS: NovoLOG Insulin Flexpen SUBQ SCH ×7 (06:19→21:01)
[2017-01-15 08:00] VITALS: BP 105/42
[2017-01-15] MEDS: Bystolic 2.5mg Tab ORAL SCH (08:25)
[2017-01-15] MEDS: Aspirin EC 81mg tab ORAL SCH (08:25)
[2017-01-15] MEDS: Heparin 5000 units/ml inj SUBQ SCH ×2 (08:27→20:47)
[2017-01-15 08:53] LABS: BASOPHILS % (AUTO) 0.9 % (0.0-2.0); EOSINOPHILS % (AUTO) 2.4 % (0.0-3.0); LYMPHOCYTES % (AUTO) 31.5 % (20.0-45.0); MEAN CORPUSCULAR HEMOGLOBIN 31.2 PG (27.0-31.0); MEAN CORPUSCULAR HGB CONC 34.5 G/DL (32.0-36.0); MEAN CORPUSCULAR VOLUME 90 FL (80-99); MEAN PLATELET VOLUME 9.5 FL (6.5-10.1); MONOCYTES % (AUTO) 5.3 % (1.0-10.0); NEUTROPHILS % (AUTO) 59.9 % (45.0-75.0); PLATELET COUNT 195 K/UL (150-450); RED CELL DISTRIBUTION WIDTH 12.7 % (11.6-14.8); WHITE BLOOD COUNT 10.5 K/UL (4.8-10.8)
[2017-01-15 09:21] LABS: ALANINE AMINOTRANSFERASE 12 U/L (3-41); ALBUMIN/GLOBULIN RATIO 1.2 (1.0-2.7); ANION GAP 15 (5-15); ASPARTATE AMINO TRANSFERASE 13 U/L (5-40); CALCIUM 9.4 mg/dL (8.6-10.2); CARBON DIOXIDE 24 mEQ/L (20-30); CHLORIDE 98 mEQ/L (98-107); CREATININE 0.8 mg/dL (0.7-1.2); GLOMERULAR FILTRATION RATE > 60 mL/min (>60); HEMOLYSIS 4; MAGNESIUM 1.8 mg/dL (1.7-2.5); PHOSPHORUS 2.4 mg/dL (2.5-4.8); POTASSIUM 4.1 mEQ/L (3.4-4.9); SODIUM 137 mEQ/L (135-145); TOTAL PROTEIN 6.5 g/dL (6.6-8.7)
--- NOTE | 2017-01-15 10:13 | General Progress Note ---
Assessment/Plan Problem List: (1) Hypoglycemia ICD Codes: E16.2 - Hypoglycemia, unspecified SNOMED: 114475249 (2) Leukocytosis ICD Codes: D72.829 - Elevated white blood cell count, unspecified SNOMED: 473806205, 956437550 Qualifiers: Qualified Codes: D72.829 - Elevated white blood cell count, unspecified (3) Diabetes mellitus ICD Codes: E11.9 - Type 2 diabetes mellitus without complications SNOMED: 54246828 (4) CAD (coronary artery disease) ICD Codes: I25.10 - Atherosclerotic heart disease of [place] coronary artery without angina pectoris SNOMED: 32556353 (5) Acute encephalopathy ICD Codes: G93.40 - Encephalopathy, unspecified SNOMED: 6957350 Assessment/Plan hypoglycemia resolved - glucose is elevated now add Levemir 8 units bid increase Novolog 4 to 6 units ac tid to SSI Subjective Allergies: Coded Allergies: No Known Allergies (Unverified , 01/12/17) All Systems: reviewed and negative except above Subjective events noted Objective Last 24 Hour Vital Signs Date Time Temp Pulse Resp B/P Pulse Ox O2 Delivery O2 Flow Rate FiO2 01/15/17 08:26 105/42 01/15/17 08:00 98.0 74 18 105/42 97 Room Air 01/15/17 07:55 94 01/15/17 04:21 97.0 68 20 124/66 96 Room Air 01/15/17 04:00 66 01/15/17 00:00 98.0 74 20 122/59 97 Room Air 01/15/17 00:00 64 01/14/17 20:00 97.3 74 18 124/75 97 Room Air 01/14/17 20:00 72 01/14/17 19:17 62 18 Room Air 21 01/14/17 16:00 97.2 69 18 126/60 92 Room Air 01/14/17 15:09 65 01/14/17 12:00 97.0 76 19 120/62 94 Room Air 01/14/17 11:48 80 Intake and Output 01/14/17 01/15/17 19:00 07:00 # Voids 1 Laboratory Tests 01/15/17 07:47: White Blood Count 10.5, Red Blood Count 4.60L, Hemoglobin 14.3, Hematocrit 41.5L , Mean Corpuscular Volume 90, Mean Corpuscular Hemoglobin 31.2H, Mean Corpuscular Hemoglobin Concent 34.5, Red Cell Distribution Width 12.7, Platelet Count 195, Mean Platelet Volume 9.5, Neutrophils (%) (Auto) 59.9, Lymphocytes (% ) (Auto) 31.5, Monocytes (%) (Auto) 5.3, Eosinophils (%) (Auto) 2.4, Basophils ( %) (Auto) 0.9, Sodium Level 137, Potassium Level 4.1, Chloride Level 98, Carbon Dioxide Level 24, Anion Gap 15, Blood Urea Nitrogen 22, Creatinine 0.8, Estimat Glomerular Filtration Rate > 60, Glucose Level 241H, Calcium Level 9.4, Phosphorus Level 2.4L, Magnesium Level 1.8, Total Bilirubin 0.5, Aspartate Amino Transf (AST/SGOT) 13, Alanine Aminotransferase (ALT/SGPT) 12, Alkaline Phosphatase 91, Total Protein 6.5L, Albumin 3.6, Globulin 2.9, Albumin/Globulin Ratio 1.2 Height (Feet): 5 Height (Inches): 8.00 Weight (Pounds): 174 General Appearance: no apparent distress Neck: normal alignment Cardiovascular: normal rate Respiratory/Chest: lungs clear Abdomen: normal bowel sounds Objective Current Medications Medications (Trade) Dose Ordered Sig/Gilbert Route PRN Reason Start Time Stop Time Status Last Admin Dose Admin Acetaminophen (Tylenol) 650 mg Q4H PRN ORAL fever 01/12/17 23:30 02/11/17 23:29 Albuterol/ Ipratropium (DuoNeb 0.5-3(2.5)mg/3ml) 3 ml EVERY 4 HOURS PRN HHN Shortness of Breath 01/12/17 23:30 01/17/17 23:29 Aspirin (Ecotrin) 81 mg DAILY ORAL 01/14/17 14:30 02/13/17 14:29 01/15/17 08:25 Atorvastatin Calcium (Lipitor) 40 mg BEDTIME ORAL 01/14/17 21:00 02/13/17 20:59 01/14/17 21:01 Clonidine HCl (Catapres) 0.1 mg Q6H PRN ORAL sbp>160 01/12/17 23:45 02/11/17 23:44 Dextrose (Dextrose 50%) STAT PRN IV Hypoglycemia 01/12/17 23:30 02/11/17 23:29 Dextrose (Dextrose 50%) STAT PRN IV Hypoglycemia 01/14/17 08:30 02/13/17 08:29 Heparin Sodium (Porcine) (Heparin 5000 units/ml) 5,000 units EVERY 12 HOURS SUBQ 01/13/17 09:00 02/12/17 08:59 01/15/17 08:27 Insulin Aspart (NovoLOG) BEFORE MEALS AND HS SUBQ 01/13/17 06:30 02/12/17 06:29 01/15/17 06:20 Insulin Aspart (NovoLOG) 4 units NOVOTIAC SUBQ 01/14/17 11:50 02/13/17 11:49 01/15/17 06:19 Irbesartan (Avapro) 75 mg DAILY ORAL 01/13/17 09:00 02/12/17 08:59 01/15/17 08:26 Morphine Sulfate (Morphine Sulfate) 2 mg EVERY 4 HOURS PRN IVP Moderate Pain (Pain Scale 4-6) 01/12/17 23:30 01/19/17 23:29 Nebivolol (Bystolic) 5 mg DAILY ORAL 01/13/17 10:00 02/12/17 09:59 01/15/17 08:25 Nitroglycerin (Ntg) 0.4 mg Every 5 Minutes PRN SL Prn Chest Pain 01/12/17 23:30 02/11/17 23:29 Ondansetron HCl (Zofran) 4 mg Q6H PRN IVP Nausea & Vomiting 01/12/17 23:30 02/11/17 23:29 Polyethylene Glycol (Miralax) 17 gm DAILYPRN PRN ORAL Constipation 01/12/17 23:30 02/11/17 23:29 Temazepam (Restoril) 15 mg HSPRN PRN ORAL Insomnia 01/12/17 23:30 01/19/17 23:29 Item Value Date Time Bedside Blood Glucose 240 mg/dl H 01/15/17 0630 Bedside Blood Glucose 204 mg/dl H 01/14/17 2109 10/20/91 0000 Bedside Blood Glucose 306 mg/dl H 01/14/17 1651 Bedside Blood Glucose 278 mg/dl H 01/14/17 1208 JA PELLETIER January 15, 2017 10:13
[2017-01-15 12:00] VITALS: BP 112/61
[2017-01-15] MEDS: Levemir Flexpen SUBQ SCH ×2 (12:16→17:05)
[2017-01-15] MEDS ORDERED: Sodium Phosphate 20 MM in NS 275 ML IVPB ONE (14:00)
--- NOTE | 2017-01-15 14:53 | Pulmonology Progress Note ---
Assessment/Plan Problems: (1) Bigeminy (2) Acute encephalopathy (3) Hypoglycemia (4) Leukocytosis (5) Diabetes mellitus (6) CAD (coronary artery disease) (7) PVC (premature ventricular contraction) Assessment/Plan bystolic was added for PVC's, now less often then before watch blood sugar dc planning depends on cardio recommendation dvt prophylaxis Subjective ROS Limited/Unobtainable: No Interval Events: wants to go home Allergies: Coded Allergies: No Known Allergies (Unverified , 01/12/17) Objective Last 24 Hour Vital Signs Date Time Temp Pulse Resp B/P Pulse Ox O2 Delivery O2 Flow Rate FiO2 01/15/17 12:00 97.0 64 18 112/61 94 Room Air 01/15/17 11:45 61 01/15/17 08:26 105/42 01/15/17 08:00 98.0 74 18 105/42 97 Room Air 01/15/17 07:55 94 01/15/17 06:49 64 18 Room Air 01/15/17 04:21 97.0 68 20 124/66 96 Room Air 01/15/17 04:00 66 01/15/17 00:00 98.0 74 20 122/59 97 Room Air 01/15/17 00:00 64 01/14/17 20:00 97.3 74 18 124/75 97 Room Air 01/14/17 20:00 72 01/14/17 19:17 62 18 Room Air 21 01/14/17 16:00 97.2 69 18 126/60 92 Room Air 01/14/17 15:09 65 Intake and Output 01/14/17 01/15/17 19:00 07:00 # Voids 1 General Appearance: WD/WN HEENT: normocephalic, atraumatic Respiratory/Chest: chest wall non-tender, lungs clear Cardiovascular: normal peripheral pulses, normal rate Abdomen: normal bowel sounds, soft, non tender Extremities: no cyanosis, no clubbing Skin: no lesions, no ulcers Microbiology Date/Time Source Procedure Growth Status 01/13/17 06:20 Urine,Clean Catch Urine Culture - Final NO GROWTH AFTER 48 HOURS Complete Laboratory Tests 01/15/17 07:47: White Blood Count 10.5, Red Blood Count 4.60L, Hemoglobin 14.3, Hematocrit 41.5L , Mean Corpuscular Volume 90, Mean Corpuscular Hemoglobin 31.2H, Mean Corpuscular Hemoglobin Concent 34.5, Red Cell Distribution Width 12.7, Platelet Count 195, Mean Platelet Volume 9.5, Neutrophils (%) (Auto) 59.9, Lymphocytes (% ) (Auto) 31.5, Monocytes (%) (Auto) 5.3, Eosinophils (%) (Auto) 2.4, Basophils ( %) (Auto) 0.9, Sodium Level 137, Potassium Level 4.1, Chloride Level 98, Carbon Dioxide Level 24, Anion Gap 15, Blood Urea Nitrogen 22, Creatinine 0.8, Estimat Glomerular Filtration Rate > 60, Glucose Level 241H, Calcium Level 9.4, Phosphorus Level 2.4L, Magnesium Level 1.8, Total Bilirubin 0.5, Aspartate Amino Transf (AST/SGOT) 13, Alanine Aminotransferase (ALT/SGPT) 12, Alkaline Phosphatase 91, Total Protein 6.5L, Albumin 3.6, Globulin 2.9, Albumin/Globulin Ratio 1.2 Current Medications Medications (Trade) Dose Ordered Sig/Gilbert Route PRN Reason Start Time Stop Time Status Last Admin Dose Admin Acetaminophen (Tylenol) 650 mg Q4H PRN ORAL fever 01/12/17 23:30 02/11/17 23:29 Albuterol/ Ipratropium (DuoNeb 0.5-3(2.5)mg/3ml) 3 ml EVERY 4 HOURS PRN HHN Shortness of Breath 01/12/17 23:30 01/17/17 23:29 Aspirin (Ecotrin) 81 mg DAILY ORAL 01/14/17 14:30 02/13/17 14:29 01/15/17 08:25 Atorvastatin Calcium (Lipitor) 40 mg BEDTIME ORAL 01/14/17 21:00 02/13/17 20:59 01/14/17 21:01 Clonidine HCl (Catapres) 0.1 mg Q6H PRN ORAL sbp>160 01/12/17 23:45 02/11/17 23:44 Dextrose STAT PRN IV Hypoglycemia 01/15/17 10:15 02/14/17 10:14 Heparin Sodium (Porcine) (Heparin 5000 units/ml) 5,000 units EVERY 12 HOURS SUBQ 01/13/17 09:00 02/12/17 08:59 01/15/17 08:27 Insulin Aspart (NovoLOG) BEFORE MEALS AND HS SUBQ 01/13/17 06:30 02/12/17 06:29 01/15/17 12:17 Insulin Aspart (NovoLOG) 6 units NOVOTIAC SUBQ 01/15/17 11:50 02/14/17 11:49 01/15/17 12:17 Insulin Detemir (Levemir) 8 units BID SUBQ 01/15/17 11:15 02/14/17 11:14 01/15/17 12:16 Irbesartan (Avapro) 75 mg DAILY ORAL 01/13/17 09:00 02/12/17 08:59 01/15/17 08:26 Morphine Sulfate (Morphine Sulfate) 2 mg EVERY 4 HOURS PRN IVP Moderate Pain (Pain Scale 4-6) 01/12/17 23:30 01/19/17 23:29 Nebivolol (Bystolic) 5 mg DAILY ORAL 01/13/17 10:00 02/12/17 09:59 01/15/17 08:25 Nitroglycerin (Ntg) 0.4 mg Every 5 Minutes PRN SL Prn Chest Pain 01/12/17 23:30 02/11/17 23:29 Ondansetron HCl (Zofran) 4 mg Q6H PRN IVP Nausea & Vomiting 01/12/17 23:30 02/11/17 23:29 Polyethylene Glycol (Miralax) 17 gm DAILYPRN PRN ORAL Constipation 01/12/17 23:30 02/11/17 23:29 Sodium Phosphate/ Sodium Chloride (NaPO4/Sodium Chloride) 281.6667 ml @ 92.778 m... ONCE ONCE IVPB 01/15/17 14:00 01/15/17 17:02 01/15/17 13:54 Temazepam (Restoril) 15 mg HSPRN PRN ORAL Insomnia 01/12/17 23:30 01/19/17 23:29 VIN RIZVI January 15, 2017 14:53
[2017-01-15 16:00] VITALS: BP 113/64
--- NOTE | 2017-01-15 16:17 | Internal Med Progress Note ---
Subjective Date of Service: January 15, 2017 Physician Name Jose Gandara Attending Physician Lake Steiner MD Current Medications Medications (Trade) Dose Ordered Sig/Gilbert Route PRN Reason Start Time Stop Time Status Last Admin Dose Admin Acetaminophen (Tylenol) 650 mg Q4H PRN ORAL fever 01/12/17 23:30 02/11/17 23:29 Albuterol/ Ipratropium (DuoNeb 0.5-3(2.5)mg/3ml) 3 ml EVERY 4 HOURS PRN HHN Shortness of Breath 01/12/17 23:30 01/17/17 23:29 Aspirin (Ecotrin) 81 mg DAILY ORAL 01/14/17 14:30 02/13/17 14:29 01/15/17 08:25 Atorvastatin Calcium (Lipitor) 40 mg BEDTIME ORAL 01/14/17 21:00 02/13/17 20:59 01/14/17 21:01 Clonidine HCl (Catapres) 0.1 mg Q6H PRN ORAL sbp>160 01/12/17 23:45 02/11/17 23:44 Dextrose STAT PRN IV Hypoglycemia 01/15/17 10:15 02/14/17 10:14 Heparin Sodium (Porcine) (Heparin 5000 units/ml) 5,000 units EVERY 12 HOURS SUBQ 01/13/17 09:00 02/12/17 08:59 01/15/17 08:27 Insulin Aspart (NovoLOG) BEFORE MEALS AND HS SUBQ 01/13/17 06:30 02/12/17 06:29 01/15/17 12:17 Insulin Aspart (NovoLOG) 6 units NOVOTIAC SUBQ 01/15/17 11:50 02/14/17 11:49 01/15/17 12:17 Insulin Detemir (Levemir) 8 units BID SUBQ 01/15/17 11:15 02/14/17 11:14 01/15/17 12:16 Irbesartan (Avapro) 75 mg DAILY ORAL 01/13/17 09:00 02/12/17 08:59 01/15/17 08:26 Morphine Sulfate (Morphine Sulfate) 2 mg EVERY 4 HOURS PRN IVP Moderate Pain (Pain Scale 4-6) 01/12/17 23:30 01/19/17 23:29 Nebivolol (Bystolic) 5 mg DAILY ORAL 01/13/17 10:00 02/12/17 09:59 01/15/17 08:25 Nitroglycerin (Ntg) 0.4 mg Every 5 Minutes PRN SL Prn Chest Pain 01/12/17 23:30 02/11/17 23:29 Ondansetron HCl (Zofran) 4 mg Q6H PRN IVP Nausea & Vomiting 01/12/17 23:30 02/11/17 23:29 Polyethylene Glycol (Miralax) 17 gm DAILYPRN PRN ORAL Constipation 01/12/17 23:30 02/11/17 23:29 Sodium Phosphate/ Sodium Chloride (NaPO4/Sodium Chloride) 281.6667 ml @ 92.778 m... ONCE ONCE IVPB 01/15/17 14:00 01/15/17 17:02 01/15/17 13:54 Temazepam (Restoril) 15 mg HSPRN PRN ORAL Insomnia 01/12/17 23:30 01/19/17 23:29 Allergies: Coded Allergies: No Known Allergies (Unverified , 01/12/17) ROS Limited/Unobtainable: No Constitutional: Reports: no symptoms HEENT: Reports: no symptoms Cardiovascular: Reports: no symptoms Respiratory: Reports: no symptoms Gastrointestinal/Abdominal: Reports: no symptoms Genitourinary: Reports: no symptoms Neurologic/Psychiatric: Reports: no symptoms Subjective 66 YO M admitted with hypoglycemia. Cover for Int Carlos-Dr Steiner Objective Last Vital Signs Date Time Temp Pulse Resp B/P Pulse Ox O2 Delivery O2 Flow Rate FiO2 01/15/17 12:00 97.0 64 18 112/61 94 Room Air 01/14/17 19:17 21 Laboratory Tests Test 01/15/17 07:47 White Blood Count 10.5 K/UL (4.8-10.8) Red Blood Count 4.60 M/UL (4.70-6.10) L Hemoglobin 14.3 G/DL (14.2-18.0) Hematocrit 41.5 % (42.0-52.0) L Mean Corpuscular Volume 90 FL (80-99) Mean Corpuscular Hemoglobin 31.2 PG (27.0-31.0) H Mean Corpuscular Hemoglobin Concent 34.5 G/DL (32.0-36.0) Red Cell Distribution Width 12.7 % (11.6-14.8) Platelet Count 195 K/UL (150-450) Mean Platelet Volume 9.5 FL (6.5-10.1) Neutrophils (%) (Auto) 59.9 % (45.0-75.0) Lymphocytes (%) (Auto) 31.5 % (20.0-45.0) Monocytes (%) (Auto) 5.3 % (1.0-10.0) Eosinophils (%) (Auto) 2.4 % (0.0-3.0) Basophils (%) (Auto) 0.9 % (0.0-2.0) Sodium Level 137 mEQ/L (135-145) Potassium Level 4.1 mEQ/L (3.4-4.9) Chloride Level 98 mEQ/L (98-107) Carbon Dioxide Level 24 mEQ/L (20-30) Anion Gap 15 (5-15) Blood Urea Nitrogen 22 mg/dL (7-23) Creatinine 0.8 mg/dL (0.7-1.2) Estimat Glomerular Filtration Rate > 60 mL/min (>60) Glucose Level 241 mg/dL (74-106) H Calcium Level 9.4 mg/dL (8.6-10.2) Phosphorus Level 2.4 mg/dL (2.5-4.8) L Magnesium Level 1.8 mg/dL (1.7-2.5) Total Bilirubin 0.5 mg/dL (0.0-1.2) Aspartate Amino Transf (AST/SGOT) 13 U/L (5-40) Alanine Aminotransferase (ALT/SGPT) 12 U/L (3-41) Alkaline Phosphatase 91 U/L (40-129) Total Protein 6.5 g/dL (6.6-8.7) L Albumin 3.6 g/dL (3.5-5.2) Globulin 2.9 g/dL Albumin/Globulin Ratio 1.2 (1.0-2.7) Microbiology Date/Time Source Procedure Growth Status 01/13/17 06:20 Urine,Clean Catch Urine Culture - Final NO GROWTH AFTER 48 HOURS Complete Intake and Output 01/14/17 01/15/17 19:00 07:00 # Voids 1 Objective General: alert, cooperative, no distress, appears stated age Head: normocephalic, without obvious abnormality, atraumatic Eyes: conjunctivae/corneas clear. PERRL, EOM's intact Throat: lips, mucosa, and tongue normal. MMM Neck: supple, symmetrical, trachea midline, and no JVD Lungs: clear to auscultation bilaterally Heart: regular rate and rhythm, S1, S2 normal, no murmur, click, rub or gallop Abdomen: soft, non-tender, non-distended, bowel sounds normal; no masses or organomegaly Extremities: extremities normal, atraumatic, no cyanosis or edema Pulses: 2+ and symmetric Skin: skin color, texture, turgor normal; no rashes or lesions Neurologic: grossly normal, no focal deficits Assessment/Plan Problem List: (1) Altered mental status Assessment & Plan: Due to hypoglycemia (2) Diabetes mellitus type II, uncontrolled Assessment & Plan: See endocrinology note. Cont levemir and novolog sliding scale. (3) Acute encephalopathy (4) Leukocytosis Assessment & Plan: D/C antibiotics. See ID note. (5) Hypoglycemia Assessment & Plan: See endocrinology note. (6) CAD (coronary artery disease) Status: not improved JOSE GANDARA January 15, 2017 16:17
[2017-01-15 20:00] VITALS: BP 120/77
--- NOTE | 2017-01-15 23:41 | Cardiology Progress Note ---
Assessment/Plan Assessment/Plan 1. VPC bigeminy, resolved, continue Bystolic. 2. Normal LV systolic function. 3. CAD, hx of PCI, stable, continue atorvastatin 40. 4. HTN well controlled with Irbesartan and Bystolic. Subjective Subjective Sinus rhythm at 68 with isolated VPCs. Objective Last 24 Hour Vital Signs Date Time Temp Pulse Resp B/P Pulse Ox O2 Delivery O2 Flow Rate FiO2 01/15/17 20:00 97.7 70 20 120/77 97 Room Air 01/15/17 16:00 97.0 68 19 113/64 94 Room Air 01/15/17 15:41 62 01/15/17 12:00 97.0 64 18 112/61 94 Room Air 01/15/17 11:45 61 01/15/17 08:26 105/42 01/15/17 08:00 98.0 74 18 105/42 97 Room Air 01/15/17 07:55 94 01/15/17 06:49 64 18 Room Air 01/15/17 04:21 97.0 68 20 124/66 96 Room Air 01/15/17 04:00 66 01/15/17 00:00 98.0 74 20 122/59 97 Room Air 01/15/17 00:00 64 Intake and Output 01/14/17 01/15/17 19:00 07:00 # Voids 1 2D Echo: LVEF 60%, Mild MR, Grade I LVDD, RVSP 17 mmHg Laboratory Tests Test 01/15/17 07:47 White Blood Count 10.5 K/UL (4.8-10.8) Red Blood Count 4.60 M/UL (4.70-6.10) L Hemoglobin 14.3 G/DL (14.2-18.0) Hematocrit 41.5 % (42.0-52.0) L Mean Corpuscular Volume 90 FL (80-99) Mean Corpuscular Hemoglobin 31.2 PG (27.0-31.0) H Mean Corpuscular Hemoglobin Concent 34.5 G/DL (32.0-36.0) Red Cell Distribution Width 12.7 % (11.6-14.8) Platelet Count 195 K/UL (150-450) Mean Platelet Volume 9.5 FL (6.5-10.1) Neutrophils (%) (Auto) 59.9 % (45.0-75.0) Lymphocytes (%) (Auto) 31.5 % (20.0-45.0) Monocytes (%) (Auto) 5.3 % (1.0-10.0) Eosinophils (%) (Auto) 2.4 % (0.0-3.0) Basophils (%) (Auto) 0.9 % (0.0-2.0) Sodium Level 137 mEQ/L (135-145) Potassium Level 4.1 mEQ/L (3.4-4.9) Chloride Level 98 mEQ/L (98-107) Carbon Dioxide Level 24 mEQ/L (20-30) Anion Gap 15 (5-15) Blood Urea Nitrogen 22 mg/dL (7-23) Creatinine 0.8 mg/dL (0.7-1.2) Estimat Glomerular Filtration Rate > 60 mL/min (>60) Glucose Level 241 mg/dL (74-106) H Calcium Level 9.4 mg/dL (8.6-10.2) Phosphorus Level 2.4 mg/dL (2.5-4.8) L Magnesium Level 1.8 mg/dL (1.7-2.5) Total Bilirubin 0.5 mg/dL (0.0-1.2) Aspartate Amino Transf (AST/SGOT) 13 U/L (5-40) Alanine Aminotransferase (ALT/SGPT) 12 U/L (3-41) Alkaline Phosphatase 91 U/L (40-129) Total Protein 6.5 g/dL (6.6-8.7) L Albumin 3.6 g/dL (3.5-5.2) Globulin 2.9 g/dL Albumin/Globulin Ratio 1.2 (1.0-2.7) Microbiology Date/Time Source Procedure Growth Status 01/13/17 06:20 Urine,Clean Catch Urine Culture - Final NO GROWTH AFTER 48 HOURS Complete Objective HEENT: Atraumatic and normocephalic. Anicteric. Pupils are equal, round, and reactive to light and accommodation. Extraocular muscles intact. NECK: JVP is less than 5 cm. No carotid bruits. Carotid upstroke is 2+ bilaterally. CARDIOVASCULAR: Normal S1 and S2. There is regular rhythm, occasional ectopic beats. A 2/6 mid systolic murmur at the left sternal border. PMI is at fourth intercostal space at the midclavicular line. LUNGS: Clear to auscultation bilaterally. ABDOMEN: Soft, nontender, and nondistended. No hepatosplenomegaly. Positive bowel sounds. EXTREMITIES: No evidence of edema, clubbing, or cyanosis. SERVANDO LEVINE January 15, 2017 23:41
[2017-01-16] VITALS: BP 126/74
[2017-01-16 04:00] VITALS: BP 108/60
[2017-01-16] MEDS: NovoLOG Insulin Flexpen SUBQ SCH ×7 (06:30→20:45)
[2017-01-16 07:04] LABS: BASOPHILS % (AUTO) 0.8 % (0.0-2.0); EOSINOPHILS % (AUTO) 1.8 % (0.0-3.0); MEAN CORPUSCULAR HEMOGLOBIN 30.5 PG (27.0-31.0); MEAN CORPUSCULAR HGB CONC 33.8 G/DL (32.0-36.0); MEAN CORPUSCULAR VOLUME 90 FL (80-99); MEAN PLATELET VOLUME 9.4 FL (6.5-10.1); MONOCYTES % (AUTO) 5.7 % (1.0-10.0); NEUTROPHILS % (AUTO) 50.7 % (45.0-75.0); PLATELET COUNT 188 K/UL (150-450); RED BLOOD COUNT 4.52 M/UL (4.70-6.10); RED CELL DISTRIBUTION WIDTH 12.9 % (11.6-14.8)
[2017-01-16 07:25] LABS: ANION GAP 14 (5-15); CALCIUM 9.2 mg/dL (8.6-10.2); CARBON DIOXIDE 25 mEQ/L (20-30); CHLORIDE 98 mEQ/L (98-107); CHOLESTEROL 181 mg/dL (< 200); CREATININE 0.8 mg/dL (0.7-1.2); GLOMERULAR FILTRATION RATE > 60 mL/min (>60); HEMOLYSIS 8; LDL CHOLESTEROL (CALC.) 101 mg/dL (60-99); POTASSIUM 4.1 mEQ/L (3.4-4.9); SODIUM 137 mEQ/L (135-145)
[2017-01-16 08:00] VITALS: BP 121/69
--- NOTE | 2017-01-16 08:34 | General Progress Note ---
Assessment/Plan Problem List: (1) Hypoglycemia ICD Codes: E16.2 - Hypoglycemia, unspecified SNOMED: 642908625 (2) Leukocytosis ICD Codes: D72.829 - Elevated white blood cell count, unspecified SNOMED: 466167061, 056781869 Qualifiers: Qualified Codes: D72.829 - Elevated white blood cell count, unspecified (3) Diabetes mellitus ICD Codes: E11.9 - Type 2 diabetes mellitus without complications SNOMED: 89554468 (4) CAD (coronary artery disease) ICD Codes: I25.10 - Atherosclerotic heart disease of [place] coronary artery without angina pectoris SNOMED: 64335936 (5) Acute encephalopathy ICD Codes: G93.40 - Encephalopathy, unspecified SNOMED: 4499324 Assessment/Plan hypoglycemia this morning DC Levemir continue Novolog 6 units ac tid + SSI Subjective Allergies: Coded Allergies: No Known Allergies (Unverified , 01/12/17) All Systems: reviewed and negative except above Subjective events noted Objective Last 24 Hour Vital Signs Date Time Temp Pulse Resp B/P Pulse Ox O2 Delivery O2 Flow Rate FiO2 01/16/17 08:00 96.8 67 20 121/69 96 Room Air 01/16/17 07:53 66 18 Room Air 01/16/17 04:00 58 01/16/17 04:00 97.0 70 20 108/60 97 Room Air 01/16/17 00:00 71 01/16/17 00:00 97.0 74 20 126/74 98 Room Air 01/15/17 20:00 97.7 70 20 120/77 97 Room Air 01/15/17 20:00 80 01/15/17 19:00 68 18 Room Air 01/15/17 16:00 97.0 68 19 113/64 94 Room Air 01/15/17 15:41 62 01/15/17 12:00 97.0 64 18 112/61 94 Room Air 01/15/17 11:45 61 Intake and Output 01/15/17 01/16/17 19:00 07:00 # Voids 1 Laboratory Tests 01/16/17 06:15: White Blood Count 9.0, Red Blood Count 4.52L, Hemoglobin 13.8L, Hematocrit 40.9L , Mean Corpuscular Volume 90, Mean Corpuscular Hemoglobin 30.5, Mean Corpuscular Hemoglobin Concent 33.8, Red Cell Distribution Width 12.9, Platelet Count 188, Mean Platelet Volume 9.4, Neutrophils (%) (Auto) 50.7, Lymphocytes (% ) (Auto) 41.0, Monocytes (%) (Auto) 5.7, Eosinophils (%) (Auto) 1.8, Basophils ( %) (Auto) 0.8, Sodium Level 137, Potassium Level 4.1, Chloride Level 98, Carbon Dioxide Level 25, Anion Gap 14, Blood Urea Nitrogen 19, Creatinine 0.8, Estimat Glomerular Filtration Rate > 60, Glucose Level 262H, Calcium Level 9.2, Phosphorus Level 4.2, Magnesium Level 1.7, Triglycerides Level 93, Cholesterol Level 181, LDL Cholesterol 101H, HDL Cholesterol 61H, Cholesterol/HDL Ratio 3.0L Height (Feet): 5 Height (Inches): 8.00 Weight (Pounds): 174 General Appearance: no apparent distress Neck: normal alignment Cardiovascular: normal rate Respiratory/Chest: lungs clear Abdomen: normal bowel sounds Edema: no edema noted Arm (L), no edema noted Arm (R), no edema noted Leg (L), no edema noted Leg (R), no edema noted Pedal (L), no edema noted Pedal (R), no edema noted Generalized Objective Current Medications Medications (Trade) Dose Ordered Sig/Gilbert Route PRN Reason Start Time Stop Time Status Last Admin Dose Admin Acetaminophen (Tylenol) 650 mg Q4H PRN ORAL fever 01/12/17 23:30 02/11/17 23:29 Albuterol/ Ipratropium (DuoNeb 0.5-3(2.5)mg/3ml) 3 ml EVERY 4 HOURS PRN HHN Shortness of Breath 01/12/17 23:30 01/17/17 23:29 Aspirin (Ecotrin) 81 mg DAILY ORAL 01/14/17 14:30 02/13/17 14:29 01/15/17 08:25 Atorvastatin Calcium (Lipitor) 40 mg BEDTIME ORAL 01/14/17 21:00 02/13/17 20:59 01/15/17 20:46 Clonidine HCl (Catapres) 0.1 mg Q6H PRN ORAL sbp>160 01/12/17 23:45 02/11/17 23:44 Dextrose (Dextrose 50%) STAT PRN IV Hypoglycemia 01/15/17 10:15 02/14/17 10:14 01/16/17 06:08 Heparin Sodium (Porcine) (Heparin 5000 units/ml) 5,000 units EVERY 12 HOURS SUBQ 01/13/17 09:00 02/12/17 08:59 01/15/17 20:47 Insulin Aspart (NovoLOG) BEFORE MEALS AND HS SUBQ 01/13/17 06:30 02/12/17 06:29 01/15/17 21:01 Insulin Aspart (NovoLOG) 6 units NOVOTIAC SUBQ 01/15/17 11:50 02/14/17 11:49 01/15/17 17:06 Insulin Detemir (Levemir) 12 units DAILY SUBQ 01/16/17 09:00 02/15/17 08:59 Irbesartan (Avapro) 75 mg DAILY ORAL 01/13/17 09:00 02/12/17 08:59 01/15/17 08:26 Morphine Sulfate (Morphine Sulfate) 2 mg EVERY 4 HOURS PRN IVP Moderate Pain (Pain Scale 4-6) 01/12/17 23:30 01/19/17 23:29 Nebivolol (Bystolic) 5 mg DAILY ORAL 01/13/17 10:00 02/12/17 09:59 01/15/17 08:25 Nitroglycerin (Ntg) 0.4 mg Every 5 Minutes PRN SL Prn Chest Pain 01/12/17 23:30 02/11/17 23:29 Ondansetron HCl (Zofran) 4 mg Q6H PRN IVP Nausea & Vomiting 01/12/17 23:30 02/11/17 23:29 Polyethylene Glycol (Miralax) 17 gm DAILYPRN PRN ORAL Constipation 01/12/17 23:30 02/11/17 23:29 Temazepam (Restoril) 15 mg HSPRN PRN ORAL Insomnia 01/12/17 23:30 01/19/17 23:29 Item Value Date Time Bedside Blood Glucose 46 mg/dl L 01/16/17 0630 Bedside Blood Glucose 187 mg/dl H 01/15/17 2101 Bedside Blood Glucose 211 mg/dl H 01/15/17 1706 Bedside Blood Glucose 220 mg/dl H 01/15/17 1217 JA PELLETIER January 16, 2017 08:34
[2017-01-16] MEDS: Aspirin EC 81mg tab ORAL SCH (08:41)
[2017-01-16] MEDS: Bystolic 2.5mg Tab ORAL SCH (08:41)
[2017-01-16] MEDS: Heparin 5000 units/ml inj SUBQ SCH ×2 (08:43→20:38)
[2017-01-16] MEDS ORDERED: Levemir Flexpen SUBQ SCH (09:00)
[2017-01-16 12:01] VITALS: BP 117/66
--- NOTE | 2017-01-16 12:53 | Infectious Diseases Prog Note ---
Assessment/Plan Assessment/Plan A: The patient is a 66-year-old male with Leukocytosis , SP 2/2 stress on evid of sepsis. SP ALOC 2/2 hypoglycemia DM PLAN: will monitor the Monitor CBC Monitor BMP Subjective Constitutional: Denies: anorexia, chills, drenching sweats, fatigue, fever, no symptoms, other Allergies: Coded Allergies: No Known Allergies (Unverified , 01/12/17) Objective Vital Signs Last 24 Hour Vital Signs Date Time Temp Pulse Resp B/P Pulse Ox O2 Delivery O2 Flow Rate FiO2 01/16/17 12:01 97.1 63 20 117/66 96 01/16/17 08:41 121/69 01/16/17 08:00 96.8 67 20 121/69 96 Room Air 01/16/17 07:53 66 18 Room Air 01/16/17 07:48 60 01/16/17 04:00 58 01/16/17 04:00 97.0 70 20 108/60 97 Room Air 01/16/17 00:00 71 01/16/17 00:00 97.0 74 20 126/74 98 Room Air 01/15/17 20:00 97.7 70 20 120/77 97 Room Air 01/15/17 20:00 80 01/15/17 19:00 68 18 Room Air 01/15/17 16:00 97.0 68 19 113/64 94 Room Air 01/15/17 15:41 62 Height (Feet): 5 Height (Inches): 8.00 Weight (Pounds): 174 HEENT: anicteric Respiratory/Chest: no accessory muscle use Cardiovascular: regular rhythm Abdomen: no organomegaly Laboratory Tests Test 01/16/17 06:15 White Blood Count 9.0 K/UL (4.8-10.8) Red Blood Count 4.52 M/UL (4.70-6.10) L Hemoglobin 13.8 G/DL (14.2-18.0) L Hematocrit 40.9 % (42.0-52.0) L Mean Corpuscular Volume 90 FL (80-99) Mean Corpuscular Hemoglobin 30.5 PG (27.0-31.0) Mean Corpuscular Hemoglobin Concent 33.8 G/DL (32.0-36.0) Red Cell Distribution Width 12.9 % (11.6-14.8) Platelet Count 188 K/UL (150-450) Mean Platelet Volume 9.4 FL (6.5-10.1) Neutrophils (%) (Auto) 50.7 % (45.0-75.0) Lymphocytes (%) (Auto) 41.0 % (20.0-45.0) Monocytes (%) (Auto) 5.7 % (1.0-10.0) Eosinophils (%) (Auto) 1.8 % (0.0-3.0) Basophils (%) (Auto) 0.8 % (0.0-2.0) Sodium Level 137 mEQ/L (135-145) Potassium Level 4.1 mEQ/L (3.4-4.9) Chloride Level 98 mEQ/L (98-107) Carbon Dioxide Level 25 mEQ/L (20-30) Anion Gap 14 (5-15) Blood Urea Nitrogen 19 mg/dL (7-23) Creatinine 0.8 mg/dL (0.7-1.2) Estimat Glomerular Filtration Rate > 60 mL/min (>60) Glucose Level 262 mg/dL (74-106) H Calcium Level 9.2 mg/dL (8.6-10.2) Phosphorus Level 4.2 mg/dL (2.5-4.8) Magnesium Level 1.7 mg/dL (1.7-2.5) Triglycerides Level 93 mg/dL (< 150) Cholesterol Level 181 mg/dL (< 200) LDL Cholesterol 101 mg/dL (60-99) H HDL Cholesterol 61 mg/dL (> 60) H Cholesterol/HDL Ratio 3.0 (3.3-4.4) L Current Medications Medications (Trade) Dose Ordered Sig/Gilbert Route PRN Reason Start Time Stop Time Status Last Admin Dose Admin Acetaminophen (Tylenol) 650 mg Q4H PRN ORAL fever 01/12/17 23:30 02/11/17 23:29 Albuterol/ Ipratropium (DuoNeb 0.5-3(2.5)mg/3ml) 3 ml EVERY 4 HOURS PRN HHN Shortness of Breath 01/12/17 23:30 01/17/17 23:29 Aspirin (Ecotrin) 81 mg DAILY ORAL 01/14/17 14:30 02/13/17 14:29 01/16/17 08:41 Atorvastatin Calcium (Lipitor) 40 mg BEDTIME ORAL 01/14/17 21:00 02/13/17 20:59 01/15/17 20:46 Clonidine HCl (Catapres) 0.1 mg Q6H PRN ORAL sbp>160 01/12/17 23:45 02/11/17 23:44 Dextrose (Dextrose 50%) STAT PRN IV Hypoglycemia 01/15/17 10:15 02/14/17 10:14 01/16/17 06:08 Heparin Sodium (Porcine) (Heparin 5000 units/ml) 5,000 units EVERY 12 HOURS SUBQ 01/13/17 09:00 02/12/17 08:59 01/16/17 08:43 Insulin Aspart (NovoLOG) BEFORE MEALS AND HS SUBQ 01/13/17 06:30 02/12/17 06:29 01/16/17 12:14 Insulin Aspart (NovoLOG) 6 units NOVOTIAC SUBQ 01/15/17 11:50 02/14/17 11:49 01/16/17 12:14 Irbesartan (Avapro) 75 mg DAILY ORAL 01/13/17 09:00 02/12/17 08:59 01/16/17 08:41 Morphine Sulfate (Morphine Sulfate) 2 mg EVERY 4 HOURS PRN IVP Moderate Pain (Pain Scale 4-6) 01/12/17 23:30 01/19/17 23:29 Nebivolol (Bystolic) 5 mg DAILY ORAL 01/13/17 10:00 02/12/17 09:59 01/16/17 08:41 Nitroglycerin (Ntg) 0.4 mg Every 5 Minutes PRN SL Prn Chest Pain 01/12/17 23:30 02/11/17 23:29 Ondansetron HCl (Zofran) 4 mg Q6H PRN IVP Nausea & Vomiting 01/12/17 23:30 02/11/17 23:29 Polyethylene Glycol (Miralax) 17 gm DAILYPRN PRN ORAL Constipation 01/12/17 23:30 02/11/17 23:29 Temazepam (Restoril) 15 mg HSPRN PRN ORAL Insomnia 01/12/17 23:30 01/19/17 23:29 DAREN SALAS M.D. January 16, 2017 12:53
[2017-01-16] MEDS ORDERED: Tubing IV Secondary IV ONE (13:27)
[2017-01-16 15:58] VITALS: BP 117/72
--- NOTE | 2017-01-16 16:14 | Internal Med Progress Note ---
Subjective Date of Service: January 16, 2017 Physician Name Stan Gandara Attending Physician Lake Steiner MD Current Medications Medications (Trade) Dose Ordered Sig/Gilbert Route PRN Reason Start Time Stop Time Status Last Admin Dose Admin Acetaminophen (Tylenol) 650 mg Q4H PRN ORAL fever 01/12/17 23:30 02/11/17 23:29 Albuterol/ Ipratropium (DuoNeb 0.5-3(2.5)mg/3ml) 3 ml EVERY 4 HOURS PRN HHN Shortness of Breath 01/12/17 23:30 01/17/17 23:29 Aspirin (Ecotrin) 81 mg DAILY ORAL 01/14/17 14:30 02/13/17 14:29 01/16/17 08:41 Atorvastatin Calcium (Lipitor) 40 mg BEDTIME ORAL 01/14/17 21:00 02/13/17 20:59 01/15/17 20:46 Clonidine HCl (Catapres) 0.1 mg Q6H PRN ORAL sbp>160 01/12/17 23:45 02/11/17 23:44 Dextrose (Dextrose 50%) STAT PRN IV Hypoglycemia 01/15/17 10:15 02/14/17 10:14 01/16/17 06:08 Heparin Sodium (Porcine) (Heparin 5000 units/ml) 5,000 units EVERY 12 HOURS SUBQ 01/13/17 09:00 02/12/17 08:59 01/16/17 08:43 Insulin Aspart (NovoLOG) BEFORE MEALS AND HS SUBQ 01/13/17 06:30 02/12/17 06:29 01/16/17 12:14 Insulin Aspart (NovoLOG) 6 units NOVOTIAC SUBQ 01/15/17 11:50 02/14/17 11:49 01/16/17 12:14 Irbesartan (Avapro) 75 mg DAILY ORAL 01/13/17 09:00 02/12/17 08:59 01/16/17 08:41 Morphine Sulfate (Morphine Sulfate) 2 mg EVERY 4 HOURS PRN IVP Moderate Pain (Pain Scale 4-6) 01/12/17 23:30 01/19/17 23:29 Nebivolol (Bystolic) 5 mg DAILY ORAL 01/13/17 10:00 02/12/17 09:59 01/16/17 08:41 Nitroglycerin (Ntg) 0.4 mg Every 5 Minutes PRN SL Prn Chest Pain 01/12/17 23:30 02/11/17 23:29 Ondansetron HCl (Zofran) 4 mg Q6H PRN IVP Nausea & Vomiting 01/12/17 23:30 02/11/17 23:29 Polyethylene Glycol (Miralax) 17 gm DAILYPRN PRN ORAL Constipation 01/12/17 23:30 02/11/17 23:29 Temazepam (Restoril) 15 mg HSPRN PRN ORAL Insomnia 01/12/17 23:30 01/19/17 23:29 Allergies: Coded Allergies: No Known Allergies (Unverified , 01/12/17) ROS Limited/Unobtainable: No Constitutional: Reports: no symptoms HEENT: Reports: no symptoms Cardiovascular: Reports: no symptoms Respiratory: Reports: no symptoms Gastrointestinal/Abdominal: Reports: no symptoms Genitourinary: Reports: no symptoms Neurologic/Psychiatric: Reports: no symptoms Subjective 66 YO M admitted with hypoglycemia. Hypoglycemia this am. Cover for Int Med- Dr Steiner Objective Last Vital Signs Date Time Temp Pulse Resp B/P Pulse Ox O2 Delivery O2 Flow Rate FiO2 01/16/17 15:58 97.5 65 20 117/72 95 Room Air 01/14/17 19:17 21 Laboratory Tests Test 01/16/17 06:15 White Blood Count 9.0 K/UL (4.8-10.8) Red Blood Count 4.52 M/UL (4.70-6.10) L Hemoglobin 13.8 G/DL (14.2-18.0) L Hematocrit 40.9 % (42.0-52.0) L Mean Corpuscular Volume 90 FL (80-99) Mean Corpuscular Hemoglobin 30.5 PG (27.0-31.0) Mean Corpuscular Hemoglobin Concent 33.8 G/DL (32.0-36.0) Red Cell Distribution Width 12.9 % (11.6-14.8) Platelet Count 188 K/UL (150-450) Mean Platelet Volume 9.4 FL (6.5-10.1) Neutrophils (%) (Auto) 50.7 % (45.0-75.0) Lymphocytes (%) (Auto) 41.0 % (20.0-45.0) Monocytes (%) (Auto) 5.7 % (1.0-10.0) Eosinophils (%) (Auto) 1.8 % (0.0-3.0) Basophils (%) (Auto) 0.8 % (0.0-2.0) Sodium Level 137 mEQ/L (135-145) Potassium Level 4.1 mEQ/L (3.4-4.9) Chloride Level 98 mEQ/L (98-107) Carbon Dioxide Level 25 mEQ/L (20-30) Anion Gap 14 (5-15) Blood Urea Nitrogen 19 mg/dL (7-23) Creatinine 0.8 mg/dL (0.7-1.2) Estimat Glomerular Filtration Rate > 60 mL/min (>60) Glucose Level 262 mg/dL (74-106) H Calcium Level 9.2 mg/dL (8.6-10.2) Phosphorus Level 4.2 mg/dL (2.5-4.8) Magnesium Level 1.7 mg/dL (1.7-2.5) Triglycerides Level 93 mg/dL (< 150) Cholesterol Level 181 mg/dL (< 200) LDL Cholesterol 101 mg/dL (60-99) H HDL Cholesterol 61 mg/dL (> 60) H Cholesterol/HDL Ratio 3.0 (3.3-4.4) L Intake and Output 01/15/17 01/16/17 19:00 07:00 # Voids 1 Objective General: alert, cooperative, no distress, appears stated age Head: normocephalic, without obvious abnormality, atraumatic Eyes: conjunctivae/corneas clear. PERRL, EOM's intact Throat: lips, mucosa, and tongue normal. MMM Neck: supple, symmetrical, trachea midline, and no JVD Lungs: clear to auscultation bilaterally Heart: regular rate and rhythm, S1, S2 normal, no murmur, click, rub or gallop Abdomen: soft, non-tender, non-distended, bowel sounds normal; no masses or organomegaly Extremities: extremities normal, atraumatic, no cyanosis or edema Pulses: 2+ and symmetric Skin: skin color, texture, turgor normal; no rashes or lesions Neurologic: grossly normal, no focal deficits Assessment/Plan Problem List: (1) Altered mental status Assessment & Plan: Due to hypoglycemia (2) Diabetes mellitus type II, uncontrolled Assessment & Plan: See endocrinology note. D/C levemir due to hypoglycemia; continue novolog sliding scale. (3) Acute encephalopathy (4) Leukocytosis Assessment & Plan: D/C antibiotics. See ID note. (5) Hypoglycemia Assessment & Plan: See endocrinology note. (6) CAD (coronary artery disease) Status: not improved STAN GANDARA January 16, 2017 16:14
[2017-01-16] MEDS ORDERED: BYSTOLIC 2.5MG2.5 MG ORAL (17:04)
--- NOTE | 2017-01-16 17:21 | Pulmonology Progress Note ---
Assessment/Plan Problems: (1) Bigeminy (2) Acute encephalopathy (3) Hypoglycemia (4) Leukocytosis (5) Diabetes mellitus (6) CAD (coronary artery disease) (7) PVC (premature ventricular contraction) Assessment/Plan bystolic was added for PVC's, now less often then before watch blood sugar, was too low this morning Levemir was discontinued dc in am dvt prophylaxis Subjective ROS Limited/Unobtainable: No Interval Events: Blood sugar was 40 this morning Constitutional: Reports: no symptoms HEENT: Repors: no symptoms Respiratory: Reports: no symptoms Allergies: Coded Allergies: No Known Allergies (Unverified , 01/12/17) Objective Last 24 Hour Vital Signs Date Time Temp Pulse Resp B/P Pulse Ox O2 Delivery O2 Flow Rate FiO2 01/16/17 15:58 97.5 65 20 117/72 95 Room Air 01/16/17 12:01 97.1 63 20 117/66 96 01/16/17 11:21 86 01/16/17 08:41 121/69 01/16/17 08:00 96.8 67 20 121/69 96 Room Air 01/16/17 07:53 66 18 Room Air 01/16/17 07:48 60 01/16/17 04:00 58 01/16/17 04:00 97.0 70 20 108/60 97 Room Air 01/16/17 00:00 71 01/16/17 00:00 97.0 74 20 126/74 98 Room Air 01/15/17 20:00 97.7 70 20 120/77 97 Room Air 01/15/17 20:00 80 01/15/17 19:00 68 18 Room Air Intake and Output 01/15/17 01/16/17 19:00 07:00 # Voids 1 General Appearance: WD/WN HEENT: normocephalic, atraumatic Respiratory/Chest: chest wall non-tender, lungs clear Cardiovascular: normal rate Abdomen: normal bowel sounds, soft, non tender Neurologic/Psychiatric: bone tender II-XII grossly normal, abnormal gait Laboratory Tests 01/16/17 06:15: White Blood Count 9.0, Red Blood Count 4.52L, Hemoglobin 13.8L, Hematocrit 40.9L , Mean Corpuscular Volume 90, Mean Corpuscular Hemoglobin 30.5, Mean Corpuscular Hemoglobin Concent 33.8, Red Cell Distribution Width 12.9, Platelet Count 188, Mean Platelet Volume 9.4, Neutrophils (%) (Auto) 50.7, Lymphocytes (% ) (Auto) 41.0, Monocytes (%) (Auto) 5.7, Eosinophils (%) (Auto) 1.8, Basophils ( %) (Auto) 0.8, Sodium Level 137, Potassium Level 4.1, Chloride Level 98, Carbon Dioxide Level 25, Anion Gap 14, Blood Urea Nitrogen 19, Creatinine 0.8, Estimat Glomerular Filtration Rate > 60, Glucose Level 262H, Calcium Level 9.2, Phosphorus Level 4.2, Magnesium Level 1.7, Triglycerides Level 93, Cholesterol Level 181, LDL Cholesterol 101H, HDL Cholesterol 61H, Cholesterol/HDL Ratio 3.0L Current Medications Medications (Trade) Dose Ordered Sig/Gilbert Route PRN Reason Start Time Stop Time Status Last Admin Dose Admin Acetaminophen (Tylenol) 650 mg Q4H PRN ORAL fever 01/12/17 23:30 02/11/17 23:29 Albuterol/ Ipratropium (DuoNeb 0.5-3(2.5)mg/3ml) 3 ml EVERY 4 HOURS PRN HHN Shortness of Breath 01/12/17 23:30 01/17/17 23:29 Aspirin (Ecotrin) 81 mg DAILY ORAL 01/14/17 14:30 02/13/17 14:29 01/16/17 08:41 Atorvastatin Calcium (Lipitor) 40 mg BEDTIME ORAL 01/14/17 21:00 02/13/17 20:59 01/15/17 20:46 Clonidine HCl (Catapres) 0.1 mg Q6H PRN ORAL sbp>160 01/12/17 23:45 02/11/17 23:44 Dextrose (Dextrose 50%) STAT PRN IV Hypoglycemia 01/15/17 10:15 02/14/17 10:14 01/16/17 06:08 Heparin Sodium (Porcine) (Heparin 5000 units/ml) 5,000 units EVERY 12 HOURS SUBQ 01/13/17 09:00 02/12/17 08:59 01/16/17 08:43 Insulin Aspart (NovoLOG) BEFORE MEALS AND HS SUBQ 01/13/17 06:30 02/12/17 06:29 01/16/17 12:14 Insulin Aspart (NovoLOG) 6 units NOVOTIAC SUBQ 01/15/17 11:50 02/14/17 11:49 01/16/17 12:14 Irbesartan (Avapro) 75 mg DAILY ORAL 01/13/17 09:00 02/12/17 08:59 01/16/17 08:41 Morphine Sulfate (Morphine Sulfate) 2 mg EVERY 4 HOURS PRN IVP Moderate Pain (Pain Scale 4-6) 01/12/17 23:30 01/19/17 23:29 Nebivolol (Bystolic) 5 mg DAILY ORAL 01/13/17 10:00 02/12/17 09:59 01/16/17 08:41 Nitroglycerin (Ntg) 0.4 mg Every 5 Minutes PRN SL Prn Chest Pain 01/12/17 23:30 02/11/17 23:29 Ondansetron HCl (Zofran) 4 mg Q6H PRN IVP Nausea & Vomiting 01/12/17 23:30 02/11/17 23:29 Polyethylene Glycol (Miralax) 17 gm DAILYPRN PRN ORAL Constipation 01/12/17 23:30 02/11/17 23:29 Temazepam (Restoril) 15 mg HSPRN PRN ORAL Insomnia 01/12/17 23:30 01/19/17 23:29 VIN RIZVI January 16, 2017 17:21
[2017-01-16 20:00] VITALS: BP 109/62
[2017-01-17] VITALS: BP 118/64
[2017-01-17] MEDS: NovoLOG Insulin Flexpen SUBQ SCH (06:09)
--- NOTE | 2017-01-17 07:06 | General Progress Note ---
Assessment/Plan Problem List: (1) Hypoglycemia ICD Codes: E16.2 - Hypoglycemia, unspecified SNOMED: 793865258 (2) Leukocytosis ICD Codes: D72.829 - Elevated white blood cell count, unspecified SNOMED: 643511299, 570284318 Qualifiers: Qualified Codes: D72.829 - Elevated white blood cell count, unspecified (3) Diabetes mellitus ICD Codes: E11.9 - Type 2 diabetes mellitus without complications SNOMED: 30007685 (4) CAD (coronary artery disease) ICD Codes: I25.10 - Atherosclerotic heart disease of [place] coronary artery without angina pectoris SNOMED: 29729717 (5) Acute encephalopathy ICD Codes: G93.40 - Encephalopathy, unspecified SNOMED: 9204857 Assessment/Plan glucose values are elevated resume Levemir 14 units qam increase Novolog 6 to 8 units ac tid + SSI Subjective Allergies: Coded Allergies: No Known Allergies (Unverified , 01/12/17) All Systems: reviewed and negative except above Subjective events noted Objective Last 24 Hour Vital Signs Date Time Temp Pulse Resp B/P Pulse Ox O2 Delivery O2 Flow Rate FiO2 01/17/17 04:00 62 01/17/17 00:00 97.7 62 20 118/64 98 Room Air 01/17/17 00:00 82 01/16/17 20:00 97.2 72 20 109/62 94 Room Air 01/16/17 20:00 62 01/16/17 19:30 64 18 Room Air 21 01/16/17 16:04 61 01/16/17 15:58 97.5 65 20 117/72 95 Room Air 01/16/17 12:01 97.1 63 20 117/66 96 01/16/17 11:21 86 01/16/17 08:41 121/69 01/16/17 08:00 96.8 67 20 121/69 96 Room Air 01/16/17 07:53 66 18 Room Air 01/16/17 07:48 60 Intake and Output 01/16/17 01/17/17 19:00 07:00 Intake Total 730 ml Output Total 500 ml Balance 730 ml -500 ml Intake Oral 730 ml Output Urine Total 500 ml # Voids 3 Height (Feet): 5 Height (Inches): 8.00 Weight (Pounds): 174 General Appearance: no apparent distress Neck: normal alignment Cardiovascular: regular rhythm Respiratory/Chest: lungs clear Abdomen: normal bowel sounds Objective Current Medications Medications (Trade) Dose Ordered Sig/Gilbert Route PRN Reason Start Time Stop Time Status Last Admin Dose Admin Acetaminophen (Tylenol) 650 mg Q4H PRN ORAL fever 01/12/17 23:30 02/11/17 23:29 Albuterol/ Ipratropium (DuoNeb 0.5-3(2.5)mg/3ml) 3 ml EVERY 4 HOURS PRN HHN Shortness of Breath 01/12/17 23:30 01/17/17 23:29 Aspirin (Ecotrin) 81 mg DAILY ORAL 01/14/17 14:30 02/13/17 14:29 01/16/17 08:41 Atorvastatin Calcium (Lipitor) 40 mg BEDTIME ORAL 01/14/17 21:00 02/13/17 20:59 01/16/17 20:35 Clonidine HCl (Catapres) 0.1 mg Q6H PRN ORAL sbp>160 01/12/17 23:45 02/11/17 23:44 Dextrose (Dextrose 50%) STAT PRN IV Hypoglycemia 01/15/17 10:15 02/14/17 10:14 01/16/17 06:08 Heparin Sodium (Porcine) (Heparin 5000 units/ml) 5,000 units EVERY 12 HOURS SUBQ 01/13/17 09:00 02/12/17 08:59 01/16/17 20:38 Insulin Aspart (NovoLOG) BEFORE MEALS AND HS SUBQ 01/13/17 06:30 02/12/17 06:29 01/17/17 06:09 Insulin Aspart (NovoLOG) 6 units NOVOTIAC SUBQ 01/15/17 11:50 02/14/17 11:49 01/16/17 17:11 Irbesartan (Avapro) 75 mg DAILY ORAL 01/13/17 09:00 02/12/17 08:59 01/16/17 08:41 Morphine Sulfate (Morphine Sulfate) 2 mg EVERY 4 HOURS PRN IVP Moderate Pain (Pain Scale 4-6) 01/12/17 23:30 01/19/17 23:29 Nebivolol (Bystolic) 5 mg DAILY ORAL 01/13/17 10:00 02/12/17 09:59 01/16/17 08:41 Nitroglycerin (Ntg) 0.4 mg Every 5 Minutes PRN SL Prn Chest Pain 01/12/17 23:30 02/11/17 23:29 Ondansetron HCl (Zofran) 4 mg Q6H PRN IVP Nausea & Vomiting 01/12/17 23:30 02/11/17 23:29 Polyethylene Glycol (Miralax) 17 gm DAILYPRN PRN ORAL Constipation 01/12/17 23:30 02/11/17 23:29 Temazepam (Restoril) 15 mg HSPRN PRN ORAL Insomnia 01/12/17 23:30 01/19/17 23:29 Item Value Date Time Bedside Blood Glucose 361 mg/dl H 01/17/17 0609 Bedside Blood Glucose 223 mg/dl H 01/16/17 2045 Bedside Blood Glucose 226 mg/dl H 01/16/17 1711 Bedside Blood Glucose 339 mg/dl H 01/16/17 1214 JA PELLETIER January 17, 2017 07:06
[2017-01-17] MEDS ORDERED: NovoLOG Insulin Flexpen SUBQ SCH (08:00)
[2017-01-17 08:18] LABS: BASOPHILS % (AUTO) 0.8 % (0.0-2.0); EOSINOPHILS % (AUTO) 2.1 % (0.0-3.0); LYMPHOCYTES % (AUTO) 28.6 % (20.0-45.0); MEAN CORPUSCULAR HEMOGLOBIN 30.7 PG (27.0-31.0); MEAN CORPUSCULAR HGB CONC 33.7 G/DL (32.0-36.0); MEAN CORPUSCULAR VOLUME 91 FL (80-99); MEAN PLATELET VOLUME 9.9 FL (6.5-10.1); MONOCYTES % (AUTO) 5.4 % (1.0-10.0); NEUTROPHILS % (AUTO) 63.1 % (45.0-75.0); PLATELET COUNT 187 K/UL (150-450); RED BLOOD COUNT 4.71 M/UL (4.70-6.10); RED CELL DISTRIBUTION WIDTH 12.6 % (11.6-14.8); WHITE BLOOD COUNT 9.1 K/UL (4.8-10.8)
[2017-01-17 08:21] VITALS: BP 128/64
[2017-01-17 08:24] LABS: ANION GAP 15 (5-15); CALCIUM 9.5 mg/dL (8.6-10.2); CARBON DIOXIDE 23 mEQ/L (20-30); CHLORIDE 97 mEQ/L (98-107); GLOMERULAR FILTRATION RATE > 60 mL/min (>60); HEMOLYSIS 7; POTASSIUM 4.3 mEQ/L (3.4-4.9); SODIUM 135 mEQ/L (135-145)
--- NOTE | 2017-01-17 08:40 | Cardiology Progress Note ---
Assessment/Plan Assessment/Plan 1. VPC bigeminy, recurrent, increase Bystolic. 2. Normal LV systolic function. 3. CAD, hx of PCI, stable, continue atorvastatin 40. 4. HTN well controlled with Irbesartan and Bystolic. Subjective Subjective Sinus rhythm at 70 with frequent VPCs. Objective Last 24 Hour Vital Signs Date Time Temp Pulse Resp B/P Pulse Ox O2 Delivery O2 Flow Rate FiO2 01/17/17 08:21 97.3 75 18 128/64 95 Room Air 01/17/17 04:00 62 01/17/17 00:00 97.7 62 20 118/64 98 Room Air 01/17/17 00:00 82 01/16/17 20:00 97.2 72 20 109/62 94 Room Air 01/16/17 20:00 62 01/16/17 19:30 64 18 Room Air 21 01/16/17 16:04 61 01/16/17 15:58 97.5 65 20 117/72 95 Room Air 01/16/17 12:01 97.1 63 20 117/66 96 01/16/17 11:21 86 01/16/17 08:41 121/69 Intake and Output 01/16/17 01/17/17 19:00 07:00 Intake Total 730 ml Output Total 500 ml Balance 730 ml -500 ml Intake Oral 730 ml Output Urine Total 500 ml # Voids 3 2D Echo: LVEF 60%, Mild MR, Grade I LVDD, RVSP 17 mmHg Laboratory Tests Test 01/17/17 07:50 White Blood Count 9.1 K/UL (4.8-10.8) Red Blood Count 4.71 M/UL (4.70-6.10) Hemoglobin 14.5 G/DL (14.2-18.0) Hematocrit 42.9 % (42.0-52.0) Mean Corpuscular Volume 91 FL (80-99) Mean Corpuscular Hemoglobin 30.7 PG (27.0-31.0) Mean Corpuscular Hemoglobin Concent 33.7 G/DL (32.0-36.0) Red Cell Distribution Width 12.6 % (11.6-14.8) Platelet Count 187 K/UL (150-450) Mean Platelet Volume 9.9 FL (6.5-10.1) Neutrophils (%) (Auto) 63.1 % (45.0-75.0) Lymphocytes (%) (Auto) 28.6 % (20.0-45.0) Monocytes (%) (Auto) 5.4 % (1.0-10.0) Eosinophils (%) (Auto) 2.1 % (0.0-3.0) Basophils (%) (Auto) 0.8 % (0.0-2.0) Sodium Level 135 mEQ/L (135-145) Potassium Level 4.3 mEQ/L (3.4-4.9) Chloride Level 97 mEQ/L (98-107) L Carbon Dioxide Level 23 mEQ/L (20-30) Anion Gap 15 (5-15) Blood Urea Nitrogen 19 mg/dL (7-23) Creatinine 1.0 mg/dL (0.7-1.2) Estimat Glomerular Filtration Rate > 60 mL/min (>60) Glucose Level 391 mg/dL (74-106) #H Calcium Level 9.5 mg/dL (8.6-10.2) Objective HEENT: Atraumatic and normocephalic. Anicteric. Pupils are equal, round, and reactive to light and accommodation. Extraocular muscles intact. NECK: JVP is less than 5 cm. No carotid bruits. Carotid upstroke is 2+ bilaterally. CARDIOVASCULAR: Normal S1 and S2. Irregular rhythm, occasional ectopic beats. A 2/6 mid systolic murmur at the left sternal border. PMI is at fourth intercostal space at the midclavicular line. LUNGS: Clear to auscultation bilaterally. ABDOMEN: Soft, nontender, and nondistended. No hepatosplenomegaly. Positive bowel sounds. EXTREMITIES: No evidence of edema, clubbing, or cyanosis. SERVANDO LEVINE January 17, 2017 08:40
[2017-01-17] MEDS ORDERED: Levemir Flexpen SUBQ SCH (09:00)
[2017-01-17] MEDS: Aspirin EC 81mg tab ORAL SCH (09:23)
[2017-01-17] MEDS: Heparin 5000 units/ml inj SUBQ SCH (09:27)
[2017-01-17 09:29] VITALS: BP 128/64
--- NOTE | 2017-01-17 11:25 | Infectious Diseases Prog Note ---
Assessment/Plan Assessment/Plan A: The patient is a 66-year-old male with Leukocytosis , SP 2/2 stress on evid of sepsis. SP ALOC 2/2 hypoglycemia DM PLAN: DC home Monitor CBC Monitor BMP Subjective Constitutional: Denies: anorexia, chills, drenching sweats, fatigue, fever, no symptoms, other Allergies: Coded Allergies: No Known Allergies (Unverified , 01/12/17) Objective Vital Signs Last 24 Hour Vital Signs Date Time Temp Pulse Resp B/P Pulse Ox O2 Delivery O2 Flow Rate FiO2 01/17/17 09:29 128/64 01/17/17 08:21 97.3 75 18 128/64 95 Room Air 01/17/17 08:00 75 01/17/17 07:56 77 18 Room Air 21 01/17/17 04:00 62 01/17/17 00:00 97.7 62 20 118/64 98 Room Air 01/17/17 00:00 82 01/16/17 20:00 97.2 72 20 109/62 94 Room Air 01/16/17 20:00 62 01/16/17 19:30 64 18 Room Air 21 01/16/17 16:04 61 01/16/17 15:58 97.5 65 20 117/72 95 Room Air 01/16/17 12:01 97.1 63 20 117/66 96 Height (Feet): 5 Height (Inches): 8.00 Weight (Pounds): 174 Abdomen: soft, non tender Laboratory Tests Test 01/17/17 07:50 White Blood Count 9.1 K/UL (4.8-10.8) Red Blood Count 4.71 M/UL (4.70-6.10) Hemoglobin 14.5 G/DL (14.2-18.0) Hematocrit 42.9 % (42.0-52.0) Mean Corpuscular Volume 91 FL (80-99) Mean Corpuscular Hemoglobin 30.7 PG (27.0-31.0) Mean Corpuscular Hemoglobin Concent 33.7 G/DL (32.0-36.0) Red Cell Distribution Width 12.6 % (11.6-14.8) Platelet Count 187 K/UL (150-450) Mean Platelet Volume 9.9 FL (6.5-10.1) Neutrophils (%) (Auto) 63.1 % (45.0-75.0) Lymphocytes (%) (Auto) 28.6 % (20.0-45.0) Monocytes (%) (Auto) 5.4 % (1.0-10.0) Eosinophils (%) (Auto) 2.1 % (0.0-3.0) Basophils (%) (Auto) 0.8 % (0.0-2.0) Sodium Level 135 mEQ/L (135-145) Potassium Level 4.3 mEQ/L (3.4-4.9) Chloride Level 97 mEQ/L (98-107) L Carbon Dioxide Level 23 mEQ/L (20-30) Anion Gap 15 (5-15) Blood Urea Nitrogen 19 mg/dL (7-23) Creatinine 1.0 mg/dL (0.7-1.2) Estimat Glomerular Filtration Rate > 60 mL/min (>60) Glucose Level 391 mg/dL (74-106) #H Calcium Level 9.5 mg/dL (8.6-10.2) DAREN SALAS M.D. January 17, 2017 11:25
--- NOTE | 2017-01-17 12:58 | Pulmonology Progress Note ---
Assessment/Plan Problems: (1) Bigeminy (2) Acute encephalopathy (3) Hypoglycemia (4) Leukocytosis (5) Diabetes mellitus (6) CAD (coronary artery disease) (7) PVC (premature ventricular contraction) Assessment/Plan improvng Bs better, off levemir on bystolic for PVC's, now less often then before watch blood sugar, was too low this morning Levemir was discontinued dc today dvt prophylaxis Subjective ROS Limited/Unobtainable: No Constitutional: Reports: no symptoms HEENT: Repors: no symptoms Respiratory: Reports: no symptoms Cardiovascular: Reports: no symptoms Allergies: Coded Allergies: No Known Allergies (Unverified , 01/12/17) Objective Last 24 Hour Vital Signs Date Time Temp Pulse Resp B/P Pulse Ox O2 Delivery O2 Flow Rate FiO2 01/17/17 09:29 128/64 01/17/17 08:21 97.3 75 18 128/64 95 Room Air 01/17/17 08:00 75 01/17/17 07:56 77 18 Room Air 21 01/17/17 04:00 62 01/17/17 00:00 97.7 62 20 118/64 98 Room Air 01/17/17 00:00 82 01/16/17 20:00 97.2 72 20 109/62 94 Room Air 01/16/17 20:00 62 01/16/17 19:30 64 18 Room Air 21 01/16/17 16:04 61 01/16/17 15:58 97.5 65 20 117/72 95 Room Air Intake and Output 01/16/17 01/17/17 19:00 07:00 Intake Total 730 ml Output Total 500 ml Balance 730 ml -500 ml Intake Oral 730 ml Output Urine Total 500 ml # Voids 3 General Appearance: WD/WN HEENT: normocephalic, atraumatic Respiratory/Chest: chest wall non-tender, lungs clear Cardiovascular: normal peripheral pulses, normal rate Abdomen: normal bowel sounds, soft, non tender Extremities: no clubbing Skin: no ulcers 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 Laboratory Tests 01/17/17 07:50: White Blood Count 9.1, Red Blood Count 4.71, Hemoglobin 14.5, Hematocrit 42.9, Mean Corpuscular Volume 91, Mean Corpuscular Hemoglobin 30.7, Mean Corpuscular Hemoglobin Concent 33.7, Red Cell Distribution Width 12.6, Platelet Count 187, Mean Platelet Volume 9.9, Neutrophils (%) (Auto) 63.1, Lymphocytes (%) (Auto) 28.6, Monocytes (%) (Auto) 5.4, Eosinophils (%) (Auto) 2.1, Basophils (%) (Auto ) 0.8, Sodium Level 135, Potassium Level 4.3, Chloride Level 97L, Carbon Dioxide Level 23, Anion Gap 15, Blood Urea Nitrogen 19, Creatinine 1.0, Estimat Glomerular Filtration Rate > 60, Glucose Level 391#H, Calcium Level 9.5 VIN RIZVI January 17, 2017 12:58
--- NOTE | 2017-01-19 06:14 | Discharge Summary ---
Discharge Summary Hospital Course Date of Admission January 12, 2017 at 22:02 Date of Discharge January 17, 2017 at 11:01 Admitting Diagnosis hypoglycemia/leukocytosis HPI Reinaldo Arnold is a 66 year old male who was admitted on January 12, 2017 at 22: 02 for Hypoglycemia/Leukocytosis Hospital Course [id number] Discharge Discharge Disposition Patient was discharged to Home (01) Discharge Diagnoses: Dulce Maria Leonard NP Jan 19, 2017 06:14
--- NOTE | 2017-01-19 07:30 | Discharge Summary 2 SIG ---
DATE OF ADMISSION: 01/12/2017 DATE OF DISCHARGE: 01/17/2017 ATTENDING PHYSICIAN: Lake Steiner M.D. CONSULTANTS: 1. Keith Acevedo M.D. 2. Gene Moyer M.D. 3. Mateusz Sanderson M.D. 4. BRIEF HOSPITAL COURSE: The patient is a 66-year-old gentleman with past medical history significant for coronary artery disease, status post stent placement and diabetes type 2, presented to the hospital after he was noted to have altered mental status. Blood glucose level on the field was 34 and he was given D10. He was taken to ED and on evaluation labs showed leukocytosis. EKG showed no acute injury, but has bigeminy. He was he stated that he was having episodes of hypoglycemia for the last three weeks and is usually on the Lantus and Humalog. He was admitted for further evaluation. Dr. Moyer was consulted for evaluation of leukocytosis and possible sepsis. He was initially given cefepime and vancomycin. Antibiotics were discontinued by ID and was observed off antibiotic treatment. Urine culture done did not isolate any growth. Dr. Sanderson was consulted for evaluation of cardiac arrhythmia. A 12 lead EKG showed a ventricular premature complexes in the form of bigeminy. Bystolic was added to the patient's regimen to control ectopic beats. He was also given Irbesartan 75 mg daily for hypertension. His blood sugars were monitored. Initially Levemir was placed on hold and he was given a sliding scale of NovoLog. Hypoglycemia resolved. Glucose was elevated, Levemir was resumed. He had recurrent PVCs, bigeminy and Bystolic was increased to 10 mg daily. Cholesterol panel was checked and a prior history of coronary artery disease. Atorvastatin was increased to 40 mg nightly. He continued to be off antibiotic treatment and altered mental status improved. Blood sugar had again an episode of hypoglycemia and was taken off Levemir. Blood sugar was better. The patient was eventually discharged. The patient was discharged home. FINAL DIAGNOSES: 1. Acute toxic metabolic encephalopathy most likely secondary to hypoglycemia. 2. Leukocytosis most likely due to reactive leukocytosis. 3. Uncontrolled diabetes type 2. 4. Coronary artery disease, status post percutaneous transluminal coronary artery angioplasty with stent placement. 5. Atherosclerotic heart disease. 6. Abnormal EKG with bigeminy as well as old inferior infarction. 7. Hypertension. FINAL DISPOSITION: The patient was discharged home and was given prescriptions for Bystolic. Advised to continue atorvastatin and Lantus. Keith Acevedo M.D. I have been assigned to dictate discharge summary on this account and I was not involved in the patient's management. Dulce Maria Leonard N.P. DR: Rose JOB#: [id number] CC:
== END 2017-01-17 11:01 | disposition home or self-care (01) | DRG 639 ==
LOC: ENRESERVDT → ENRESERVTM → EDBD 20:13 → EMR 20:26 → 2E 22:02 → EDBEDREQ 22:13 → EDBEDREQSVC 22:13 → EDBEDREQ 22:24
DX: E11.649 Type 2 diabetes mellitus with hypoglycemia without coma (principal); G92 Toxic encephalopathy; I25.10 Atherosclerotic heart disease of native coronary artery without angina pectoris; Z95.5 Presence of coronary angioplasty implant and graft; Z79.4 Long term (current) use of insulin; I25.2 Old myocardial infarction; F17.200 Nicotine dependence, unspecified, uncomplicated; I49.3 Ventricular premature depolarization; R00.8 Other abnormalities of heart beat
CPT/HCPCS: 36415; 71010; 80048; 80053; 80061; 80300; 81003; 82465; 82550; 82962; 83735; 83880; 84100; 84484; 85025; 87086; 93005; 93306; 94664; J1815; S5561